=== PATIENT | female | born 1945 | race Caucasian/White ===

== ENCOUNTER → 2018-08-30 13:01 | Outpatient (CLI) | payer MEDICARE, SELFPAY ==
--- NOTE | 2018-08-30 | DI.RAD.S_ITS ---
PROCEDURE: XR CERVICAL SPINE 4V OR 5V INDICATIONS: CERVICALGIA TECHNIQUE: 5 views of the cervical spine acquired. COMPARISON: None. FINDINGS: Bones: No fractures or dislocations to the C7 level. Diffuse facet arthropathy is present. Trace anterolisthesis of C3 and C4. Endplate spurring and sclerosis. Mild narrowing of the C4-C5, C5-C6 and C6-C7 disc spaces. Chronic corticated ossicles projecting in the posterior paraspinal soft tissues at the level of C6 On the left there is moderate bony foraminal stenosis at the C3-C4 level. On the right there is mild bony narrowing of the C4-C5 and C5-C6 neuroforamen Soft tissues: No prevertebral soft tissue swelling. IMPRESSION: Multilevel cervical disc degeneration and facet arthropathy as above, most pronounced from C4-C7. Trace anterolisthesis of C3 on C4. Dictated by: Allen Kinsey M.D. on 08/30/2018 at 13:56 Approved by: Allen Kinsey M.D. on 08/30/2018 at 13:59
== END ==
PROVIDERS: PCP Physician Assistant; Visit Provider Physician Assistant
DX: M50.321 Other cervical disc degeneration at C4-C5 level (principal); M47.812 Spondylosis without myelopathy or radiculopathy, cervical region
CPT/HCPCS: 72050

== ENCOUNTER → 2020-11-15 15:49 | Outpatient (CLI) | payer OTHER, MEDICARE, SELFPAY ==
[2020-11-15 16:46] LABS: Appearance Urine UA CLEAR; Bilirubin Urine UA NEGATIVE (NEGATIVE); Color Urine UA YELLOW; Glucose Urine UA NEGATIVE (Negative); Ketones Urine UA NEGATIVE (NEGATIVE); Leukocyte Esterase Urine UA NEGATIVE (NEGATIVE); Nitrite Urine UA NEGATIVE (Negative); Occult Blood Urine UA 3+ (Negative); Protein Urine UA NEGATIVE (Negative); Urobilinogen Urine UA 0.2 E.U./dL (0.2)
[2020-11-15 16:47] LABS: Bacteria Urine None Seen
[2020-11-15 16:48] LABS: Culture Indicated Urine Cult Not Indicated; RBC Urine 5-10/HPF (0-5/HPF); Squamous Epithelial Cell Urine 0-1 /HPF (0-5/HPF); WBC Urine 0-1/HPF (0-5/HPF)
== END ==
PROVIDERS: PCP Internal Medicine; Referring Provider Specialist; Visit Provider Specialist
DX: N39.0 Urinary tract infection, site not specified (principal)
CPT/HCPCS: 81003; 81015

== ENCOUNTER → 2021-05-16 11:26 | Outpatient (CLI) | payer OTHER, MEDICARE, SELFPAY | PROVIDERS: PCP Internal Medicine; Referring Provider Internal Medicine; Visit Provider Internal Medicine | DX: Z78.0 Asymptomatic menopausal state (principal); M85.88 Other specified disorders of bone density and structure, other site; M85.852 Other specified disorders of bone density and structure, left thigh; M85.851 Other specified disorders of bone density and structure, right thigh | CPT/HCPCS: 77080 ==

== ENCOUNTER 2023-04-19 18:21 | Emergency (ER) | payer OTHER, MEDICARE, SELFPAY ==
[2023-04-19 18:24] VITALS: BP 192/86; PULSE 82; RESP 14; TEMP 36.5; O2SAT 99; BMI 22.4
--- NOTE | 2023-04-19 19:01 | DI.CT.S_ITS ---
PROCEDURE: CT HEAD/BRAIN WO CON INDICATIONS: fall with L sided forehead laceration TECHNIQUE: Noncontrast 4.5 mm thick angled axial sections acquired from the foramen magnum to the vertex, with coronal and sagittal reformats. For radiation dose reduction, the following was used: automated exposure control, adjustment of mA and/or kV according to patient size. COMPARISON: None. FINDINGS: Image quality: Good CSF spaces: Basal cisterns are patent. Lateral ventricles are symmetric. Volume: Vascular calcifications. Periventricular white matter disease is commonly seen with chronic microangiopathy. Volume loss is present. These findings are [id number] Brain: No intracranial hemorrhage. Shah-white differentiation is grossly maintained. Craniofacial structures: Left frontal scalp hematoma and laceration. paranasal sinus disease. IMPRESSION: No acute intracranial abnormality. Left frontal scalp hematoma and laceration. Dictated by: Nomi Haji M.D. on 04/19/2023 at 19:49 Approved by: Nomi Haji M.D. on 04/19/2023 at 19:50
--- NOTE | 2023-04-19 19:01 | ED_ITS ---
HPI - Head Injury General Chief complaint: Head Injury Stated complaint: Head inj, No thinners Time Seen by Provider: 04/19/23 18:53 Source: patient Mode of arrival: Wheelchair Limitations: no limitations History of Present Illness HPI Narrative: Patient is a 77-year-old female who is here for evaluation of the head injury. She states that she was wearing sandals at home. She tripped over a rug. She fell forward. She has a laceration to her forehead. No other injuries from the event. There was no loss of consciousness. She is not on blood thinners. She arrived by private vehicle. Related Data Home Medications Medication Instructions Recorded Confirmed cholecalciferol (vitamin D3) 250 500 mcg PO DAILY 11/29/20 11/29/20 mcg (10,000 unit) capsule prevagen PO 11/29/20 11/29/20 Previous Rx's Medication Instructions Recorded phenytoin sodium extended 100 mg 100 mg PO TID #60 caps 06/19/18 capsule (Dilantin Extended) estradiol 0.01% (0.1 mg/gram) 1 g vaginal 2XW #42.5 grams 11/29/20 vaginal cream (Estrace) Allergies Allergy/AdvReac Type Severity Reaction Status Date / Time codeine [CODEINE] Allergy Mild ITCHING Verified 04/19/23 18:24 Penicillins [PENICILLINS] Allergy Mild ITCHING Verified 04/19/23 18:24 cortisone Allergy Verified 04/19/23 18:24 Review of Systems Constitutional Constitutional: Reports system reviewed and no additional complaints, except as documented ENT Ears, Nose, Mouth, and Throat: Reports system reviewed and no additional complaints, except as documented Musculoskeletal Musculoskeletal: Reports system reviewed and no additional complaints, except as documented Integumentary/Breasts Skin/Breast: Reports system reviewed and no additional complaints, except as documented Neurologic Neurologic: Reports system reviewed and no additional complaints, except as documented Hematologic/Lymphatic On Anticoagulants: No Patient History Medical History History of UTI Lower urinary tract symptoms (LUTS) Neurological disease Postmenopausal atrophic vaginitis Seizure disorder Surgical History History of abdominal hysterectomy History of bladder surgery History of bladder suspension procedure History of breast biopsy Family History Mother Cancer Sister Cancer Inflammatory bowel disease Social History marital status: occupational status: employed Smoking Status: Former smoker Tobacco: How many years used: 40 alcohol intake: current caffeine: Yes Smoking Status: Former smoker alcohol intake frequency: holidays/special occasions only Substance Use Type: does not use Exam Initial Vital Signs Initial Vital Signs: Vital Signs Temperature 97.7 F 04/19/23 18:24 Pulse Rate 82 04/19/23 18:24 Respiratory Rate 14 04/19/23 18:24 Blood Pressure 192/86 H 04/19/23 18:24 Pulse Oximetry 99 04/19/23 18:24 Oxygen Delivery Method Room Air 04/19/23 18:24 Const General: cooperative, comfortable and No ill appearing HENMT Head: No abrasion and laceration (Left forehead) Face and sinus: normal facial exam Mouth: oral mucosae normal Resp Effort & Inspection: normal respiratory effort Cardio Rate: regular rate Back/Spine/Pelvis Cervical Spine: No cervical spinal tenderness Skin Other: 4 cm laceration to the left forehead. Neuro General: patient alert, patient awake, patient oriented x3 and moves all extremities Extrem General: normal to inspection and capillary refill normal Procedures Laceration Repair Laceration 1: Site: face (Left forehead) Side (If applicable): left Size (cm): 4 Description: linear Depth: simple, single layer Local Anesthetic: lidocaine 1% and with epi Amount of anesthesia used (mL): 10 Pre-repair: wound explored, irrigated extensively and deep structures intact Skin layer closed with: nylon Skin layer suture size: 3-0 Number of sutures: 8 Technique: simple, interrupted Scores GCS Crapo coma scale eye opening: Spontaneous Crapo coma scale verbal response: Orientated Crapo coma scale motor response: Obey commands Crapo coma scale total score: 15 Nexus Score for C-Spine Focal Neurologic deficit present: No Midline spinal tenderness present: No Altered level of conciousness present: No Intoxication present: No Distracting Injury Present: No Nexus Criteria for C-spine: 0 Course Orders Ordered: ED Orders 04/19/23 19:01 CT head/brain wo con Stat Discontinued Medications Bacitracin (Bacitracin Oint 0.9 Gm Pckt) 1 applic TOP NOW ONE Stop: 04/19/23 20:20 Last Admin: 04/19/23 21:01 Dose: 1 applic Documented By: MALVIN Vital Signs Vital signs: Vital Signs - 8 hr 04/19/23 18:24 04/19/23 19:31 04/19/23 20:00 Temperature 97.7 F Pulse Rate 82 Respiratory Rate 14 Blood Pressure 192/86 H 154/82 H 158/74 H Pulse Oximetry 99 Oxygen Delivery Method Room Air 04/19/23 21:03 Temperature Pulse Rate Respiratory Rate Blood Pressure 157/67 H Pulse Oximetry Oxygen Delivery Method [facility] - Head Injury Imaging Data CT scan - head: Radiologist's Impression: PROCEDURE:? CT HEAD/BRAIN WO CON ? INDICATIONS:? fall with L sided forehead laceration ? TECHNIQUE:? Noncontrast 4.5 mm thick angled axial sections acquired from the foramen magnum to the vertex, with coronal and sagittal reformats.? For radiation dose reduction, the following was used:? automated exposure control, adjustment of mA and/or kV according to patient size.? ? COMPARISON:? None. ? FINDINGS:? Image quality:? Good ? CSF spaces: Basal cisterns are patent. Lateral ventricles are symmetric. Volume:? Vascular calcifications. Periventricular white matter disease is commonly seen with chronic microangiopathy. Volume loss is present. These findings are cqqi-ph-[id number] ? ? Brain: No intracranial hemorrhage. Shah-white differentiation is grossly maintained. ? Craniofacial structures:? Left frontal scalp hematoma and laceration.? paranasal sinus disease. ? IMPRESSION:? No acute intracranial abnormality.? Left frontal scalp hematoma and laceration. [facility] Narrative Medical decision making narrative: This was clearly a mechanical fall. Her cervical spine was cleared by nexus criteria. Head CT is unremarkable. Her forehead laceration was closed as described above and she was given care instructions and return precautions and follow-up instructions. She reports no other injuries from the event. No other injuries found on the exam. Discharge patient home. She expressed understanding and agreement. Discharge Plan Departure Patient Disposition: Home Clinical Impression: Forehead laceration Instructions: DI for Laceration Repair Activity Restrictions/Additional Instructions: The stitches do need to be removed in 7-10 days. You can either go to the walk- in clinic or your primary doctor for this. Until then you can cover the area with topical antibiotic ointment. You can shower like normal. Return to the emergency department for new or worsening symptoms. Prescriptions: No Action phenytoin sodium extended [Dilantin Extended] 100 mg capsule 100 mg PO TID Qty: 60 0RF Rx Instructions: Patient needs to establish with a PCP prior to future fills. 06/19/18 prevagen PO cholecalciferol (vitamin D3) 250 mcg (10,000 unit) capsule 500 mcg PO DAILY estradiol [Estrace] 0.01 % (0.1 mg/gram) cream 1 g vaginal 2XW Qty: 42.5 3RF Rx Instructions: Insert 1 g intravaginally at bedtime x times 12 days then 2 times per week at bedtime thereafter as directed. Stand Alone Forms: Patient Portal/API
[2023-04-19 19:31] VITALS: BP 154/82
[2023-04-19 20:00] VITALS: BP 158/74
[2023-04-19] MEDS: BACITRACIN OINT 0.9 GM PCKT 1 APPLIC TOP (21:01)
[2023-04-19 21:03] VITALS: BP 157/67
== END 2023-04-19 21:09 | disposition home or self-care (01) ==
PROVIDERS: Emergency Provider Emergency Medicine
DX: S01.81XA Laceration without foreign body of other part of head, initial encounter (principal); W01.0XXA Fall on same level from slipping, tripping and stumbling without subsequent striking against object, initial encounter
CPT/HCPCS: 12013; 70450; 99283

== ENCOUNTER 2023-11-26 16:43 | Day surgery (SDC) | payer OTHER, MEDICARE, SELFPAY ==
--- NOTE | 2023-11-26 | PATH_ITS ---
[facility] Accession Number: [id number] No. of containers..05 Tissue . 01 Material submitted: . PART A: colon - APPENDICEAL ORIFICE POLYP PART B: colon - ASCENDING POLYP PART C: sigmoid colon - SIGMOID POLYP PART D: rectosigmoid junction - RECTO-SIGMOID POLYP PART E: rectum - RECTAL BIOPSY . 01 Diagnosis: A. APPENDICEAL ORIFICE POLYP: Sessile serrated adenoma. . B. ASCENDING COLON POLYP: Sessile serrated adenoma. . C. SIGMOID COLON POLYP: Tubular adenoma. . D. 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 Negative for malignancy. . E. RECTUM, BIOPSY: Colorectal mucosa with erosion; please see comment. Negative for granulomas, dysplasia or malignancy. [facility] 12/03/2023 1151 Local . 01 Comment: Part D: The rectosigmoid colon polyp is a traditional serrated adenoma with focal high-grade dysplasia evidenced by a cribriform architecture and loss of nuclear polarity. No malignancy is identified. Given the presence of high-grade dysplasia, correlation with endoscopic findings before and after polypectomy to assurance complete removal of the lesion, and close clinical followup are recommended. . As part of routine clinical quality rn, Dr. Padron has reviewed part D of this case and agrees with the presence of high-grade dysplasia with no evidence of malignancy. . Part E: The findings in the rectal biopsy raise a differential diagnosis including infection, drug/toxin-induced injury, solitary rectal (stercoral) ulcer, and in the appropriate clinical setting, idiopathic inflammatory bowel disease. . 01 Electronically signed: . Agustin Larsen MD, PhD, Pathologist NPI- [id number] . 01 Gross description: . Part A: APPENDICEAL ORIFICE POLYP: Received in formalin are 2 fragment(s) of whitting[place], soft tissue measuring 0.3 x 0.2 x 0.2 cm to 0.7 x 0.4 x 0.4 cm submitted entirely in 1 cassette(s) Part B: ASCENDING POLYP: Received in formalin are multiple fragment(s) of whittington, soft tissue measuring 0.1 x 0.1 x 0.1 cm to 0.6 x 0.4 x 0.3 cm submitted entirely in 2 cassette(s) Part C: SIGMOID POLYP: Received in formalin is 1 fragment(s) of whittington, soft tissue measuring 0.5 x 0.4 x 0.3 cm submitted entirely in 1 cassette(s) Part D: RECTO-SIGMOID POLYP: Received in formalin is 1 fragment of whittington soft tissue measuring 1.0 x 1.0 x 1.0 cm. Specimen is sectioned and submitted in its entirety in 1 cassette. Part E: RECTAL BIOPSY: Received in formalin is 1 fragment(s) of whittington, soft tissue measuring 0.2 x 0.1 x 0.1 cm submitted entirely in 1 cassette(s) /DIOGO 11/27/2023 [facility] . 01 Pathologist provided ICD-10: D12.6, D12.7, K52.9 . 01 CPT . 564484, 308633, 675491, [id number], [id number] Specimen Comment: A courtesy copy of this report has been sent to [phone] Performed at: 01 [facility] [address] [place] [address], [place], [place] [id number] MD Randy Barcenas MD Phone: [phone]
--- NOTE | 2023-11-26 17:00 | P.HP_ITS ---
History of Present Illness History of Present Illness Date Patient Seen: 11/26/23 Time Patient Seen: 17:01 Chief complaint: Colonoscopy Narrative: This is a 78-year-old female with a positive Cologuard. She has a tendency towards constipation. She has been having a little bit of rectal bleeding of late. [facility] Medical History Lower urinary tract symptoms (LUTS) History of UTI Postmenopausal atrophic vaginitis Seizure disorder Neurological disease Surgical History History of abdominal hysterectomy History of breast biopsy History of bladder suspension procedure History of bladder surgery Family History Mother Cancer Sister Cancer Inflammatory bowel disease Social History marital status: occupational status: employed Smoking Status: Former smoker Tobacco: How many years used: 40 alcohol intake: current caffeine: Yes Meds Home Medications and Allergies Home Medications Medication Instructions Recorded Confirmed Type phenytoin sodium extended 100 mg 100 mg PO TID #60 caps 06/19/18 11/26/23 Rx capsule (Dilantin Extended) cholecalciferol (vitamin D3) 250 500 mcg PO DAILY 11/29/20 11/29/20 History mcg (10,000 unit) capsule estradiol 0.01% (0.1 mg/gram) 1 g vaginal 2XW #42.5 grams 11/29/20 11/29/20 Rx vaginal cream (Estrace) prevagen PO 11/29/20 11/29/20 History Allergies Allergy/AdvReac Type Severity Reaction Status Date / Time codeine [CODEINE] Allergy Mild ITCHING Verified 11/26/23 16:59 Penicillins [PENICILLINS] Allergy Mild ITCHING Verified 11/26/23 16:59 cortisone Allergy Verified 11/26/23 16:59 Review of Systems Review of Systems ROS: Yes All systems reviewed with the patient and are negative except as otherwise documented Exam Const General: cooperative HENMT Head: normal to inspection Eyes General: appearance normal, both eyes and all related structures Neck Neck: normal visual inspection Chest Chest: normal inspection of the chest Resp Effort & Inspection: normal respiratory effort Cardio Rate: regular rate GI Inspection: normal to inspection Skin General: no rashes or lesions noted Neuro General: patient alert and patient awake Extrem General: normal to inspection and no pedal edema Psych Appearance: grossly normal Assessment & Plan Assessment & Plan narrative: 78-year-old female with a positive Cologuard. She has been having constipation and rectal bleeding. Colonoscopy is pursued today.
--- NOTE | 2023-11-26 17:02 | PM.PREOP ---
Pre-operative Note Interval Note History & Physical reviewed/Exam performed by Physician: Yes Changes to H&P: No ASA Class (for procedural sedation): II
[2023-11-26 17:04] VITALS: BP 156/77; PULSE 910; RESP 16; TEMP 36.7; O2SAT 96
[2023-11-26] MEDS: LACTATED RINGERS 1,000 ML 42 ML IV (17:05)
--- NOTE | 2023-11-26 18:00 | PM.OP.COLON ---
Operative Date/Time/Diagnoses Date of procedure: 11/26/23 Time of procedure: 18:00 Pre-op diagnosis: Positive Cologuard, intermittent rectal bleeding, constipation. Post-op diagnosis: same Procedure & Clinicians Study performed: Colonoscopy with saline injection, hot snare polypectomy, Endoclip deployment, and biopsies. Same procedure as scheduled: Yes Indications: Positive Cologuard, intermittent rectal bleeding, constipation. Surgeon: Tomi Vasquez Procedure Notes SCOAP/Timeout: Done Procedure in detail: After the risks and benefits were explained, written and verbal informed consent was obtained. The patient was brought into the procedure room and placed into the left lateral decubitus position. Please see anesthesia notes for sedation details. Digital rectal examination was accomplished. The scope was introduced into the patient and advanced under direct visualization to the cecum as identified by the appendiceal orifice and ileocecal valve. The scope was slowly withdrawn to carefully examine the mucosa for any defects or lesions. Comprehensive imaging was accomplished throughout the rectum including the dentate line. The colon was decompressed, the scope was then removed from the patient who tolerated the procedure well. Procedure time was prolonged secondary to numerous polyps and 1 complex polypectomy; 22 modifier is requested. Pediatric colonoscope Bowel prep adequate Scope withdrawal time: 41 minutes Sedation minutes: 51 Complications: none Impression: The patient had evidence of grade 2 to 3 internal hemorrhoids. No bleeding. There was a swath of friable erythematous mucosa at the rectosigmoid junction concerning for early stercoral ulceration. This was biopsied for histopathologic analysis. This focal abnormality was perhaps 3 x 5 cm of involved mucosa. The remainder of the rectal mucosa appeared normal with the exception of some scattered hyperplastic appearing diminutive polyps. In the cecum there was a 5 mm polyp in the appendiceal orifice removed with cold snare. A 2nd polyp measuring perhaps 7 mm and sessile in the cecum was removed by hot snare. Both of these were submitted for histopathologic analysis together. In the ascending colon there was a sessile polyp that measured perhaps 12 x 22 mm in greatest dimension. We injected saline for an adequate submucosal lift and then this polyp was removed by way of piecemeal hot snare polypectomy. To close the defect, we used 3 Endoclips. In the proximal sigmoid colon there was an approximately 6 mm sessile polyp removed with hot snare. Just proximal to the rectosigmoid junction was a semi pedunculated polyp measuring up to 15 mm in greatest dimension removed by way of hot snare. Some diverticulosis was noted in the sigmoid region. Endoscopic diagnosis 1. Multiple colon polyps 2. Diverticulosis 3. Hemorrhoids 4. Early stercoral ulceration Post-procedure Plan for aftercare: 1. Await histology 2. An niwt-ixb-lozavny fiber supplement such as Metamucil or Citrucel should be used twice daily to facilitate soft regular stools. 3. Should there be no adequate colonic evacuation after 48-72 hours, consider an cvyl-uek-vuhceag dose of MiraLax. 4. Avoid aspirin and NSAIDs times 10 days. 5. Repeat colonoscopy will likely be suggested for 6 months for surveillance. Disposition: PACU
[2023-11-26 18:02] VITALS: BP 124/77; PULSE 90; RESP 14; TEMP 36.2; O2SAT 97
[2023-11-26 18:07] VITALS: BP 151/90; PULSE 94; RESP 15; O2SAT 97
[2023-11-26 18:12] VITALS: BP 161/89; PULSE 95; RESP 18; O2SAT 97
[2023-11-26 18:17] VITALS: BP 155/87; PULSE 82; RESP 18; TEMP 36.2; O2SAT 97
== END 2023-11-26 18:26 | disposition home or self-care (01) ==
PROVIDERS: Referring Provider Surgery; Visit Provider Internal Medicine Gastroenterology
PROC: 0DJD8ZZ Inspection of Lower Intestinal Tract, Via Natural or Artificial Opening Endoscopic (ICD-10-PCS; CPT 45378; principal; 2023-11-26 17:15)
DX: K62.5 Hemorrhage of anus and rectum (principal); R19.5 Other fecal abnormalities; K59.00 Constipation, unspecified; K57.30 Diverticulosis of large intestine without perforation or abscess without bleeding; D12.1 Benign neoplasm of appendix; D12.2 Benign neoplasm of ascending colon; D12.5 Benign neoplasm of sigmoid colon; D12.7 Benign neoplasm of rectosigmoid junction; K62.6 Ulcer of anus and rectum
CPT/HCPCS: 45381; 45385; J2704

== ENCOUNTER 2024-01-30 15:03 | Emergency (ER) | payer OTHER, MEDICARE, SELFPAY ==
[2024-01-30] VITALS (8 sets, daily range): BP systolic 153–192; BP diastolic 70–126; PULSE 62–84; RESP 16; TEMP 37.1; O2SAT 94–100; BMI 26.2
[2024-01-30 17:12] LABS: Appearance Urine UA CLEAR; Bilirubin Urine UA NEGATIVE (NEGATIVE); Color Urine UA YELLOW; Glucose Urine UA NEGATIVE (Negative); Ketones Urine UA NEGATIVE (NEGATIVE); Leukocyte Esterase Urine UA TRACE (NEGATIVE); Nitrite Urine UA POSITIVE (Negative); Occult Blood Urine UA TRACE-INTACT (Negative); Protein Urine UA NEGATIVE (Negative); Urobilinogen Urine UA 0.2 E.U./dL (0.2)
[2024-01-30 17:15] LABS: pH Urine UA 7.5 (4.5-8.0)
[2024-01-30 17:32] LABS: Urine Volume 10mL (spun)
[2024-01-30 17:33] LABS: Bacteria Urine Many (>30); Culture Indicated Urine Specimen Cultured; RBC Urine 0-1/HPF (0-5/HPF); Renal Epithelial Cells Urine 0-1/HPF (0-1/HPF); Squamous Epithelial Cell Urine 0-1 /HPF (0-5/HPF); WBC Urine 10-30/HPF (0-5/HPF)
--- NOTE | 2024-01-30 20:22 | ED.GENADULT ---
HPI - General Adult General Chief complaint: Urogenital-Female Stated complaint: sent by Carlos Eduardo of[facility], UTI Time Seen by Provider: 01/30/24 20:22 Source: patient Mode of arrival: Ambulatory History of Present Illness HPI narrative: 78-year-old woman with a history of a single seizure currently on phenytoin uses topical estrogen has had 6 days of dysuria, frequency in overall irritation. He is now having some lower pubic pain and when questioned in detail maybe having some developing right flank pain. There was no nausea, vomiting, fever, dyspnea, body aches, chest pain, sense of systemic symptoms or complaints. She talked to her doctor who told her to come to the emergency department for additional evaluation. Related Data Home Medications Medication Instructions Recorded Confirmed cholecalciferol (vitamin D3) 250 500 mcg PO DAILY 11/29/20 11/29/20 mcg (10,000 unit) capsule prevagen PO 11/29/20 11/29/20 Previous Rx's Medication Instructions Recorded phenytoin sodium extended 100 mg 100 mg PO TID #60 caps 06/19/18 capsule (Dilantin Extended) estradiol 0.01% (0.1 mg/gram) 1 g vaginal 2XW #42.5 grams 11/29/20 vaginal cream (Estrace) sulfamethoxazole 800 1 tab PO BID #14 tabs 01/30/24 mg-trimethoprim 160 mg tablet (Bactrim DS) Allergies Allergy/AdvReac Type Severity Reaction Status Date / Time codeine [CODEINE] Allergy Mild ITCHING Verified 11/26/23 16:59 Penicillins [PENICILLINS] Allergy Mild ITCHING Verified 11/26/23 16:59 cortisone Allergy Verified 11/26/23 16:59 Review of Systems Review of Systems Narrative: Pertinent positive and negative findings as per HPI Patient History Medical History Lower urinary tract symptoms (LUTS) History of UTI Postmenopausal atrophic vaginitis Seizure disorder Neurological disease Surgical History History of abdominal hysterectomy History of breast biopsy History of bladder suspension procedure History of bladder surgery Family History Mother Cancer Sister Cancer Inflammatory bowel disease Social History marital status: occupational status: employed Smoking Status: Former smoker Tobacco: How many years used: 40 alcohol intake: current caffeine: Yes Smoking Status: Former smoker alcohol intake frequency: holidays/special occasions only Substance Use Type: does not use Exam Initial Vital Signs Initial Vital Signs: Vital Signs Temperature 98.7 F 01/30/24 16:06 Pulse Rate 80 01/30/24 16:06 Respiratory Rate 16 01/30/24 16:06 Blood Pressure 153/76 H 01/30/24 16:06 Pulse Oximetry 98 01/30/24 16:06 Oxygen Delivery Method Room Air 01/30/24 16:06 General: Healthy appearing, in no acute distress. Able to give a complete and coherent history. Well-nourished well-developed HEENT: Moist mucous membranes, normal sclera with reactive pupils, Respiratory: Lungs are clear to auscultation, no wheezing no rales no rhonchi. Full and symmetrical air movement Cardiac: Regular rate and rhythm no murmurs no bruits Abdomen: Soft, mild suprapubic tenderness without rebound or guarding,, good bowel tones, mild right flank pain with deep palpation Skin: Warm and dry, no rashes Neurologic: Grossly neurologically intact with no obvious asymmetries or abnormalities Extremities: No trauma, well perfused Psych: Cooperative, appropriate insight and affect Course Orders Ordered: ED Orders 01/30/24 16:23 Urinalysis and Microscopic Stat Urine Culture Stat Discontinued Medications Trimethoprim/Sulfamethoxazole (Trimeth/Sulfa 160/800 (Ds) Tablet) 1 tab PO NOW ONE Stop: 01/30/24 20:50 Vital Signs Vital signs: Vital Signs - 8 hr 01/30/24 16:06 Temperature 98.7 F Pulse Rate 80 Respiratory Rate 16 Blood Pressure 153/76 H Pulse Oximetry 98 Oxygen Delivery Method Room Air Medical Decision Making Lab Data Labs: Lab Results 01/30/24 Range/Units 16:23 Urine Color Yellow Urine Appearance Clear Urine pH 7.5 (4.5-8.0) Ur Specific [place] 1.020 (1.000-1.035) Urine Protein Negative (Negative) Urine Glucose (UA) Negative (Negative) g/dL Urine Ketones Negative (NEGATIVE) Urine Occult Blood Trace-intact (Negative) Urine Nitrate Positive H (Negative) Urine Bilirubin Negative (NEGATIVE) Urine Urobilinogen 0.2 (0.2) E.U./dL Ur Leukocyte Esterase Trace H (NEGATIVE) Urine RBC 0-1/hpf (0-5/HPF) Urine WBC 10-30/hpf H (0-5/HPF) Ur Squamous Epith Cells 0-1 /hpf (0-5/HPF) Ur Renal Epithelial Cell 0-1/hpf (0-1/HPF) Urine Bacteria Many (>30) H (None) Ur Culture Indicated? Specimen cultured Vol Urine Centrifuged 10ml (spun) Urine Dip Bedside Urine Glucose Negative Bedside Urine Bilirubin - Negative Bedside Urine Ketone - Negative Urine Specific [place] 1.015 Bedside Urine Occult Blood ++ Bedside Urine pH 7.0 Bedside Urine Protein - Negative Bedside Urine Urobilinogen - Negative Bedside Urine Nitrite + Positive Bedside Urine Leukocytes +/- 15 Esterase Point of care testing: Urine Dip Bedside Urine Glucose Negative Bedside Urine Bilirubin - Negative Bedside Urine Ketone - Negative Urine Specific [place] 1.015 Bedside Urine Occult Blood ++ Bedside Urine pH 7.0 Bedside Urine Protein - Negative Bedside Urine Urobilinogen - Negative Bedside Urine Nitrite + Positive Bedside Urine Leukocytes +/- 15 Esterase MDM Narrative Medical decision making narrative: CC: 6 days of dysuria Complicating co-morbidities: Atrophic vaginitis, single seizure continued phenytoin dosing Data collected from: patient Differential considered: Simple UTI, pyelonephritis, sepsis, colitis, low risk for sexually transmitted infection Exam documented above, pertinent findings include: Patient appears remarkably well. Minor suprapubic tenderness with deep palpation minor right flank pain. Vitals are entirely unremarkable Lab Test results independently reviewed as above. Pertinent findings: Urinalysis is positive for urinary tract infection Treatments: She was started on Bactrim Discussion: Remarkably healthy 78-year-old woman with 6 days of urinary tract symptoms and urinalysis suggesting UTI. No evidence of sepsis on physical exam no evidence of significant pyelonephritis, she has not febrile, not nauseated, able to eat and drink without complication has reliable transport to return back to the emergency department if symptoms worsen. With shared decision-making we opted to not proceed with any additional workup as she has no clinical signs or symptoms of additional systemic disease. Will opt to treat her with a longer course of Bactrim, 7 days, given the fact that she has had symptoms for the last 6 days. She clearly recognizes that she needs to return to the emergency department if symptoms are not improving. Questions are answered and she is safe for discharge Discharge Plan Departure Patient Disposition: Home Clinical Impression: Urinary tract infection Qualifiers: Urinary tract infection type: acute cystitis Hematuria presence: without hematuria Qualified Code(s): N30.00 - Acute cystitis without hematuria Instructions: DI for Urinary Tract Infection (UTI) Activity Restrictions/Additional Instructions: Thank you for coming in today It does look like you have a bladder infection but your clinical exam and vital signs do not suggest more severe infection. I do not think that you have sepsis I do not think that you have active pyelonephritis but you are at risk. Because of that I am going to suggest 7 full days of Bactrim, an antibiotic, to be taken twice a day. 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 Please make sure that you are drinking plenty of fluids. Do continue to use the topical estrogen creams If you find that you are getting worse or develop any new symptoms, please feel free to return to the emergency department for further evaluation. Prescriptions: New sulfamethoxazole-trimethoprim [Bactrim DS] 800-160 mg tablet 1 tab PO BID Qty: 14 0RF No Action phenytoin sodium extended [Dilantin Extended] 100 mg capsule 100 mg PO TID Qty: 60 0RF Rx Instructions: Patient needs to establish with a PCP prior to future fills. 06/19/18 prevagen PO cholecalciferol (vitamin D3) 250 mcg (10,000 unit) capsule 500 mcg PO DAILY estradiol [Estrace] 0.01 % (0.1 mg/gram) cream 1 g vaginal 2XW Qty: 42.5 3RF Rx Instructions: Insert 1 g intravaginally at bedtime x times 12 days then 2 times per week at bedtime thereafter as directed. Referrals: Shira Nelson MD [Primary Care Provider] - Stand Alone Forms: Patient Portal/API
[2024-01-30] MEDS: TRIMETH/SULFA 160/800 (DS) TABLET 1 TAB PO (21:10)
== END 2024-01-30 21:08 | disposition home or self-care (01) ==
PROVIDERS: Emergency Medicine; Emergency Provider Emergency Medicine; PCP Internal Medicine
DX: N30.00 Acute cystitis without hematuria (principal)
CPT/HCPCS: 81001; 81003; 87077; 87086; 87186; 99283

== ENCOUNTER 2024-07-21 10:15 | Inpatient (IN) | payer OTHER, MEDICARE, SELFPAY ==
[2024-07-21] VITALS (27 sets, daily range): BP systolic 105–153; BP diastolic 56–83; PULSE 86–117; RESP 16–37; TEMP 36–37.3; O2SAT 88–99; BMI 25.4
--- NOTE | 2024-07-21 10:35 | DI.RAD.S_ITS ---
PROCEDURE: XR CHEST 1V INDICATIONS: Shortness of breath TECHNIQUE: One view of the chest was acquired. COMPARISON: None. FINDINGS: Surgical changes and devices: None. Lungs and pleura: Right midlung opacity. No pleural effusions or pneumothorax. Mediastinum: Mediastinal contours appear normal. Heart size is normal. Bones and chest wall: No suspicious bony lesions. Overlying soft tissues appear unremarkable. IMPRESSION: Right midlung opacity concerning for pneumonia. Recommend follow-up radiograph after treatment to ensure resolution and exclude underlying neoplasm. Dictated by: Jared Aguilera M.D. on 07/21/2024 at 11:25 Approved by: Jared Aguilera M.D. on 07/21/2024 at 11:25
--- NOTE | 2024-07-21 10:37 | EKG_ITS ---
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
[2024-07-21 10:56] LABS: Add Manual Diff / Slide Review NO; Basophils Absolute Auto 100 /uL (0-100); Basophils Percent Auto 0.4 % (0-2); Eosinophils Absolute Auto 100 /uL (0-450); Eosinophils Percent Auto 0.3 % (2-4); Hematocrit 41.3 % (36-46); Hemoglobin 13.5 g/dL (12.0-16.0); Lymphocytes Absolute Auto 1000 /uL (1100-4500); Lymphocytes Percent Auto 3.9 % (25-40); Mean Corpuscular HGB Conc 32.6 % (30-36); Mean Corpuscular Hemoglobin 30.3 PG (26-34); Monocytes Absolute Auto 1600 /uL (0-900); Monocytes Percent Auto 6.4 % (3-14); Neutrophils Absolute Auto 22500 /uL (1500-7000); Platelet Count 343 X10^3/uL (150-400); Red Blood Cell Count 4.45 X10^6/uL (4.0-5.2); Red Cell Distribution Width 13.9 % (11.6-14.8); White Blood Cell Count 25.3 X10^3/uL (4.5-11.0)
[2024-07-21 10:59] LABS: INR 1.4 (0.9-1.3); Prothrombin Time 15.4 SECONDS (9.4-12.5)
--- NOTE | 2024-07-21 11:00 | ED.URI ---
HPI - URI/Sore Throat General Chief Complaint: Upper Respiratory Symptoms Stated Complaint: cough, No energy, thick green phlegm Time Seen by Provider: 07/21/24 10:54 Source: patient Mode of arrival: Ambulatory History of Present Illness HPI Narrative: Patient is a 78-year-old female history of seizure on Dilantin but has not had seizure in many years hyperlipidemia presenting today with a cough increasing weakness and shortness of breath. She says it has been ongoing for about 1 month. She is unable to go up stairs to take a shower because she was so weak and short of breath. She has just been doing rubbing alcohol baths. She has a significant decrease in appetite not drinking as much but still urinating. She feels extremely short of breath no significant swelling in her legs no chest pain. She also reports coughing up green productive sputum she was able to give us a sample. Related Data Home Medications Medication Instructions Recorded Confirmed phenytoin sodium extended 100 mg 100 mg PO TID 07/21/24 07/21/24 capsule (Dilantin Extended) rosuvastatin 5 mg PO DAILY 07/21/24 07/21/24 Allergies Allergy/AdvReac Type Severity Reaction Status Date / Time codeine [CODEINE] Allergy Mild ITCHING Verified 11/26/23 16:59 Penicillins [PENICILLINS] Allergy Mild ITCHING Verified 11/26/23 16:59 cortisone Allergy Verified 11/26/23 16:59 Patient History Medical History Lower urinary tract symptoms (LUTS) History of UTI Postmenopausal atrophic vaginitis Seizure disorder Neurological disease Surgical History History of abdominal hysterectomy History of breast biopsy History of bladder suspension procedure History of bladder surgery Family History Mother Cancer Sister Cancer Inflammatory bowel disease Social History marital status: household members: spouse occupational status: employed Smoking Status: Former smoker Tobacco: How many years used: 40 alcohol intake: former caffeine: Yes Smoking Status: Never smoker alcohol intake frequency: holidays/special occasions only Substance Use Type: does not use Exam Initial Vital Signs Initial Vital Signs: Vital Signs Temperature 96.8 F L 07/21/24 10:30 Pulse Rate 114 H 07/21/24 10:30 Respiratory Rate 24 07/21/24 10:30 Blood Pressure 135/73 07/21/24 10:30 Pulse Oximetry 88 L 07/21/24 10:30 Oxygen Delivery Method Room Air 07/21/24 10:30 GENERAL: Alert 78 appears comfortable nontoxic HEENT: Head atraumatic,EOMI, pupils reactive, face symmetric, moist mucous membranes CARDIOVASCULAR: Regular rate and rhythm without murmurs, rubs or gallops. RESPIRATORY: Decreased breath sounds bilaterally no significant wheezing rales or rhonchi ABDOMEN: Soft, nontender. Normoactive bowel sounds all 4 quadrants. No guarding or rebound. EXTREMITIES: Normal range of motion, no clubbing or edema. Neurovascularly intact NEUROLOGICAL: Alert and oriented x4.Normal gait and speech. Cranial nerves II through XII grossly intact. SKIN: Warm, dry, no laceration, no petechiae, no rashes or lesions. Course Orders Ordered: ED Orders 07/21/24 12:40 Troponin & CK Cardiac Panel Stat 07/21/24 13:00 Sputum Culture Stat Acetaminophen (Acetaminophen 325 Mg Tablet) 650 mg PO Q6H PRN PRN Reason: Fever/Mild Pain (1-3) Calcium Carbonate (Calcium Carbonate 500 Mg Tab) 1,000 mg PO Q4HR PRN PRN Reason: Dyspepsia Enoxaparin Sodium (Enoxaparin 40 Mg/0.4 Ml Syringe) 40 mg SUBCUT DAILY [facility] Ceftriaxone Sodium 1,000 mg/ (Sodium Chloride) 100 mls @ 200 mls/hr IV Q24H [facility] Stop: 07/27/24 10:59 Azithromycin 500 mg/ Dextrose 250 mls @ 250 mls/hr IV Q24H [facility] Stop: 07/25/24 11:59 Naloxone HCl (Naloxone 0.4 Mg/Ml Vial) 0.2 mg IV Q2MIN PRN PRN Reason: Opiate Reversal Ondansetron HCl (Ondansetron 4 Mg Odt) 4 mg PO Q8HR PRN PRN Reason: Nausea And Vomiting Sennosides (Sennosides 8.6 Mg Tablet) 17.2 mg PO BEDTIME CECILY Sodium Chloride (Sodium Chloride 0.9% Flush) 10 ml IV PRN PRN PRN Reason: Flush Sodium Chloride (Sodium Chloride 0.9% Flush) 10 ml IV BID CECILY Discontinued Medications Albuterol/Ipratropium (Albuterol/Ipratropium 3 Ml Ampul) 3 ml INH NOW ONE Stop: 07/21/24 11:13 Last Admin: 07/21/24 11:30 Dose: 3 ml Documented By: IMANI Aspirin (Aspirin 81 Mg Chew Tab) 324 mg PO NOW ONE Stop: 07/21/24 11:24 Last Admin: 07/21/24 11:40 Dose: 324 mg Documented By: ASHWINI Ceftriaxone Sodium 1,000 mg/ (Sodium Chloride) 100 mls @ 200 mls/hr IV NOW ONE Stop: 07/21/24 11:13 Last Infusion: 07/21/24 12:12 Dose: Infused Documented By: Admin: 07/21/24 11:41 Dose: 200 mls/hr Documented By: ASHWINI Azithromycin 500 mg/ Dextrose 250 mls @ 250 mls/hr IV NOW ONE Stop: 07/21/24 11:13 Last Infusion: 07/21/24 13:44 Dose: Infused Documented By: Admin: 07/21/24 12:08 Dose: 250 mls/hr Documented By: ASHWINI Sodium Chloride (Normal Saline 0.9%) 1,000 mls @ 1,000 mls/hr IV BOLUS ONE Stop: 07/21/24 12:11 Last Infusion: 07/21/24 12:42 Dose: Infused Documented By: Admin: 07/21/24 11:36 Dose: 1,000 mls/hr Documented By: ASHWINI Vital Signs Vital signs: Vital Signs - 8 hr 07/21/24 13:15 07/21/24 13:15 07/21/24 13:30 Pulse Rate 96 H 94 H Respiratory Rate 18 24 Blood Pressure 116/57 L Pulse Oximetry 99 97 Oxygen Delivery Method Oxygen Flow Rate 07/21/24 13:31 07/21/24 13:31 07/21/24 13:45 Pulse Rate 93 H 97 H Respiratory Rate 16 18 Blood Pressure 105/57 L Pulse Oximetry 98 92 Oxygen Delivery Method Nasal Cannula Oxygen Flow Rate 2 07/21/24 13:45 07/21/24 14:00 07/21/24 14:00 Pulse Rate 114 H Respiratory Rate 37 H Blood Pressure 112/59 L 110/56 L Pulse Oximetry 91 Oxygen Delivery Method Room Air Oxygen Flow Rate 07/21/24 14:15 07/21/24 14:15 07/21/24 14:30 Pulse Rate 94 H Respiratory Rate 28 H Blood Pressure 117/57 L 106/58 L Pulse Oximetry 92 Oxygen Delivery Method Oxygen Flow Rate 07/21/24 14:30 07/21/24 14:45 07/21/24 14:45 Pulse Rate 92 H 91 H Respiratory Rate 20 16 Blood Pressure 107/58 L Pulse Oximetry 90 L 92 Oxygen Delivery Method Room Air Oxygen Flow Rate 07/21/24 14:46 07/21/24 14:46 07/21/24 15:00 Pulse Rate 89 Respiratory Rate 20 Blood Pressure Pulse Oximetry 88 L 91 97 Oxygen Delivery Method Room Air Nasal Cannula Oxygen Flow Rate 2 2 07/21/24 15:00 Pulse Rate Respiratory Rate Blood Pressure 107/56 L Pulse Oximetry Oxygen Delivery Method Oxygen Flow Rate MDM - URI/Sore Throat Lab Data 07/21/24 10:40 07/21/24 10:40 Labs: Lab Results 07/21/24 07/21/24 07/21/24 Range/Units 10:40 11:14 12:40 WBC 25.3 H (4.5-11.0) X10^3/uL RBC 4.45 (4.0-5.2) X10^6/uL Hgb 13.5 (12.0-16.0) g/dL Hct 41.3 (36-46) % MCV 93.0 (80-100) fL MCH 30.3 (26-34) PG MCHC 32.6 (30-36) % RDW 13.9 (11.6-14.8) % Plt Count 343 (150-400) X10^3/uL Neut % (Auto) 89.0 H (50-75) % Lymph % (Auto) 3.9 L (25-40) % [place] % (Auto) 6.4 (3-14) % Eos % (Auto) 0.3 L (2-4) % Baso % (Auto) 0.4 (0-2) % Neut # (Auto) 08605 H (8059-8156) /uL Lymph # (Auto) 1000 L (4183-1371) /uL [place] # (Auto) 1600 H (0-900) /uL Eos # (Auto) 100 (0-450) /uL Baso # (Auto) 100 (0-100) /uL PT 15.4 H (9.4-12.5) SECONDS INR 1.4 H (0.9-1.3) D-Dimer 6355 H (<500) ng/ml Sodium 134 L (137-145) mmol/L Potassium 3.9 (3.4-5.1) mmol/L Chloride 97 L (98-107) mmol/L Carbon Dioxide 26 (22-32) mmol/L BUN 39 H (7-17) mg/dL Creatinine 1.27 H (0.52-1.04) mg/dL Estimated GFR 43 L (>60) mL/min BUN/Creatinine Ratio 30.7 H (6-22) Glucose 176 H (80-110) mg/dL Lactate 1.9 (0.7-2.1) mmol/L Calcium 9.3 (8.4-10.2) mg/dL Total Bilirubin 0.6 (0.2-1.3) mg/dL AST 55 H (14-36) IU/L ALT 32 (<35) IU/L Alkaline Phosphatase 147 H (38-126) U/L Total Creatine Kinase 37 (30-135) U/L Troponin I 0.184 H* 0.136 H* (0.01-0.034) ng/mL NT-Pro-B Natriuret Pep 1970 H (<450) pg/mL Total Protein 7.6 (6.3-8.2) g/dL Albumin 4.0 (3.5-5.0) g/dL Globulin 3.6 (1.7-4.1) g/dL Albumin/Globulin Ratio 1.1 (1.0-2.8) Chlamy pneumoniae PCR Not detected (Not Detect) Adenovirus (PCR) Not detected (Not Detect) B. pertussis DNA (PCR) Not detected (Not Detect) B.parapertussis DNA PCR Not detected (Not Detecte) Coronavirus OC43 (PCR) Not detected (Not Detect) Coronavirus HKU1 (PCR) Not detected (Not Detect) Coronavirus 229E (PCR) Not detected (Not Detect) SARS-CoV-2 (PCR) Not detected (Not Detecte) Coronavirus NL63 (PCR) Not detected (Not Detect) Human Metapneumovir PCR Not detected (Not Detect) Influenza Type A (PCR) Not detected (Not Detect) Influenza Type B (PCR) Not detected (Not Detect) M. pneumoniae (PCR) Not detected (Not Detect) Parainfluenza 1 (PCR) Not detected (Not Detect) Parainfluenza 2 (PCR) Not detected (Not Detect) Parainfluenza 3 (PCR) Not detected (Not Detect) Parainfluenza 4 (PCR) Not detected (Not Detect) RSV (PCR) Not detected (Not Detect) Entero/Rhino (PCR) Not detected (Not Detect) Imaging Data Chest x-ray: Radiologist's Impression: PROCEDURE: XR CHEST 1V INDICATIONS: Shortness of breath TECHNIQUE: One view of the chest was acquired. COMPARISON: None. FINDINGS: Surgical changes and devices: None. Lungs and pleura: Right midlung opacity. No pleural effusions or pneumothorax. Mediastinum: Mediastinal contours appear normal. Heart size is normal. Bones and chest wall: No suspicious bony lesions. Overlying soft tissues appear unremarkable. IMPRESSION: Right midlung opacity concerning for pneumonia. Recommend follow-up radiograph after treatment to ensure resolution and exclude underlying neoplasm. Dictated by: Jared Aguilera M.D. on 07/21/2024 at 11:25 Approved by: Jared Aguilera M.D. on 07/21/2024 at 11:25 CT scan - chest: Radiologist's Impression: PROCEDURE: CT ANGIO CHEST PE PROTOCOL INDICATIONS: hypoxia dimer 6000 (High) TECHNIQUE: After the administration of intravenous contrast, 2 mm thick sections acquired from the pulmonary apices to the posterior costophrenic angles. 3-dimensional maximum intensity projection (MIP) coronal and sagittal reformats were then acquired through the thorax. For radiation dose reduction, the following was used: automated exposure control, adjustment of mA and/or kV according to patient size. COMPARISON: [facility], , XR CHEST 1V, 07/21/2024, 10:35. FINDINGS: Image quality: Diagnostic. Pulmonary arteries: Pulmonary arteries are normal in size, and demonstrate no intraluminal filling defects to suggest central pulmonary embolism. Lower Neck: No enlarged lymph nodes. Thyroid: No thyroid nodules which require sonographic follow up, per consensus guidelines. Axillae: No enlarged lymph nodes. Chest Wall: Unremarkable. Bones: No suspicious osseous lesion. Lungs and Pleura: No pneumothorax or pleural effusions. Small consolidation at the inferior aspect of the right upper lobe, (5/145). This corresponds to the x-ray finding. There are additional small consolidative opacities bilaterally. There is bronchial wall thickening and a few areas of distal mucus airway plugging. The central airways are clear. No obvious mass. Heart: Heart size is within normal limits. No pericardial effusion. Thoracic Vessels: No aortic aneurysm. Mediastinum and Jennifer: Shotty mediastinal and hilar lymph nodes Esophagus: No wall thickening. No hiatal hernia. Upper Abdomen: Visualized upper abdomen solid organs and bowel loops appear normal. IMPRESSION: 1. No pulmonary embolism. 2. Multifocal pneumonia. Recommend follow-up to resolution. 3. Shotty mediastinal and hilar lymph nodes. Favor reactive etiology. Dictated by: Adi Ochoa M.D. on 07/21/2024 at 13:10 ECG Data Attestation: I personally reviewed and interpreted this ECG as follows: Prior ECG tracings: available for review Interpretation: Normal sinus rhythm rate 111 CA interval 130 QRS 82 QTC 437 artifact noted T-wave inversion noted in lead [address] changes MDM Narrative Medical decision making narrative: [facility] CC: Shortness of breath weakness Complicating co-morbidities: Seizure disorder well-controlled Differential considered: Pneumonia acute coronary syndrome pulmonary embolus Exam documented above, pertinent findings include: Decreased breath sounds bilaterally no rales rhonchi or conversational dyspnea Lab Test results independently reviewed as above. Pertinent findings: WBC 25.5 with left shift Lactate 1.9 Creatinine 1.27 previously 0.7 Troponin 0.184-->0.136 BNP 1970 Respiratory panel negative D-dimer 6355 Independently reviewed EKG as above: No acute ischemia T-wave inversions noted in lead 2 no priors to compare no ST elevation or depression artifact noted Imaging studies independently reviewed: Chest x-ray does show pneumonia As CT confirms pneumonia without pulmonary embolism Consultations: Dr. Hernandez's updated patient's symptoms test results and accepts Treatments: Fluid, Rocephin azithromycin Re-evaluations: Patient appears well she has no significant conversational dyspnea she does require about 1 L of O2 at rest Discussion: Patient 78-year-old female presents today with increasing weakness cough and shortness of breath. Clinically she has community-acquired pneumonia this is found on x-ray she has leukocytosis of 25 and a normal lactate. She has no sign of severe sepsis her lactate is 1.9 she was not given sepsis fluids. She does have elevated troponin which I suspect is demand ischemia and not acute coronary syndrome. It is down trending she has no EKG changes or chest pain. She also has a significantly elevated D-dimer it is not age adjust rule out with the years criteria. CT angio confirms pneumonia and does not show any evidence of pulmonary embolism. Discharge Plan Departure Patient Disposition: Admitted As Inpatient Clinical Impression: Pneumonia, Acute non-ST elevation myocardial infarction (NSTEMI) Admit Date/Time: 07/21/24 15:33 Admit Provider: Domenico Hernandez
[2024-07-21 11:04] LABS: Alanine Aminotransferase 32 IU/L (<35); Albumin Globulin Ratio 1.1 (1.0-2.8); Alkaline Phosphatase 147 U/L (38-126); Aspartate Aminotransferase 55 IU/L (14-36); BUN Creatinine Ratio 30.7 (6-22); Bilirubin Total 0.6 mg/dL (0.2-1.3); Blood Urea Nitrogen 39 mg/dL (7-17); Calcium 9.3 mg/dL (8.4-10.2); Carbon Dioxide 26 mmol/L (22-32); Chloride 97 mmol/L (98-107); Estimated Glomerular Filt Rate 43 mL/min (>60); Globulin 3.6 g/dL (1.7-4.1); Glucose 176 mg/dL (80-110); HEMOLYSIS 16 (0-50); Lactate (Lactic Acid) 1.9 mmol/L (0.7-2.1); Potassium 3.9 mmol/L (3.4-5.1); Sodium 134 mmol/L (137-145); Total Protein 7.6 g/dL (6.3-8.2)
[2024-07-21 11:15] LABS: NT-proBNP (BNP-Adult 18+) 1970 pg/mL (<450)
[2024-07-21 11:17] LABS: Troponin I 0.184 ng/mL (0.01-0.034)
[2024-07-21] MEDS: ALBUTEROL/IPRATROPIUM 3 ML AMPUL INH (11:30)
[2024-07-21] MEDS: SODIUM CHLORIDE 0.9% 1,000 ML 1000 ML IV (11:36)
[2024-07-21] MEDS: ASPIRIN 81 MG CHEW TAB 324 MG PO (11:40)
[2024-07-21] MEDS: cefTRIAXone 1,000 MG in SODIUM CHLORIDE 0.9% 100 ML 200 MG IV (11:41)
[2024-07-21 11:55] LABS: D Dimer 6355 ng/ml (<500)
--- NOTE | 2024-07-21 12:02 | DI.CT.S_ITS ---
PROCEDURE: CT ANGIO CHEST PE PROTOCOL INDICATIONS: hypoxia dimer 6000 (High) TECHNIQUE: After the administration of intravenous contrast, 2 mm thick sections acquired from the pulmonary apices to the posterior costophrenic angles. 3-dimensional maximum intensity projection (MIP) coronal and sagittal reformats were then acquired through the thorax. For radiation dose reduction, the following was used: automated exposure control, adjustment of mA and/or kV according to patient size. COMPARISON: [facility], CR, XR CHEST 1V, 07/21/2024, 10:35. FINDINGS: Image quality: Diagnostic. Pulmonary arteries: Pulmonary arteries are normal in size, and demonstrate no intraluminal filling defects to suggest central pulmonary embolism. Lower Neck: No enlarged lymph nodes. Thyroid: No thyroid nodules which require sonographic follow up, per consensus guidelines. Axillae: No enlarged lymph nodes. Chest Wall: Unremarkable. Bones: No suspicious osseous lesion. Lungs and Pleura: No pneumothorax or pleural effusions. Small consolidation at the inferior aspect of the right upper lobe, (5/145). This corresponds to the x-ray finding. There are additional small consolidative opacities bilaterally. There is bronchial wall thickening and a few areas of distal mucus airway plugging. The central airways are clear. No obvious mass. Heart: Heart size is within normal limits. No pericardial effusion. Thoracic Vessels: No aortic aneurysm. Mediastinum and Jennifer: Shotty mediastinal and hilar lymph nodes Esophagus: No wall thickening. No hiatal hernia. Upper Abdomen: Visualized upper abdomen solid organs and bowel loops appear normal. IMPRESSION: 1. No pulmonary embolism. 2. Multifocal pneumonia. Recommend follow-up to resolution. 3. Shotty mediastinal and hilar lymph nodes. Favor reactive etiology. Dictated by: Adi Ochoa M.D. on 07/21/2024 at 13:10 Approved by: Adi Ochoa M.D. on 07/21/2024 at 13:18
[2024-07-21] MEDS: AZITHROMYCIN 500 MG in DEXTROSE 5% IN WATER 250 ML 250 MG IV (12:08)
[2024-07-21 12:18] LABS: Adenovirus Not Detected (Not Detect); B. parapertussis Not Detected (Not Detecte); Bordetella pertussis Not Detected (Not Detect); Chlamydophila pneumoniae Not Detected (Not Detect); Coronavirus 229E Not Detected (Not Detect); Coronavirus HKU1 Not Detected (Not Detect); Coronavirus NL 63 Not Detected (Not Detect); Coronavirus OC43 Not Detected (Not Detect); Human Metapneumovirus Not Detected (Not Detect); Human Rhinovirus/Enterovirus Not Detected (Not Detect); Influenza A Not Detected (Not Detect); Influenza B Not Detected (Not Detect); Mycoplasma pneumoniae Not Detected (Not Detect); Parainfluenza Virus 1 Not Detected (Not Detect); Parainfluenza Virus 2 Not Detected (Not Detect); Parainfluenza Virus 3 Not Detected (Not Detect); Parainfluenza Virus 4 Not Detected (Not Detect); Respiratory Syncytial Virus Not Detected (Not Detect); SARS- CoV-2 Not Detected (Not Detecte)
[2024-07-21 12:57] LABS: Creatine Kinase 37 U/L (30-135)
[2024-07-21 13:11] LABS: Troponin I 0.136 ng/mL (0.01-0.034)
--- NOTE | 2024-07-21 15:52 | P.HP_ITS ---
History of Present Illness History of Present Illness Date Patient Seen: 07/21/24 Time Patient Seen: 15:52 Chief complaint: cough, No energy, thick green phlegm Narrative: Patient was a 77-year-old female with history of seizure disorder and hyperlipidemia who presents with 2 days of cough and increased dyspnea with weakness. She was had some symptoms over the last month. She was noted a fair amount of dyspnea with exertion but denies any leg edema or orthopnea. She presented to the ED where imaging was concerning for pneumonia and was started on IV antibiotics. She has had a cough for 2 weeks, productive of green phlegm. No fevers or chills. Some dyspnea on exertion. No chest pain. No nausea. She denies URI symptoms, no change in appetite. No urinary symptoms or diarrhea. [facility] Medical History Lower urinary tract symptoms (LUTS) History of UTI Postmenopausal atrophic vaginitis Seizure disorder Neurological disease Surgical History History of abdominal hysterectomy History of breast biopsy History of bladder suspension procedure History of bladder surgery Family History Mother Cancer Sister Cancer Inflammatory bowel disease Social History marital status: household members: spouse occupational status: employed Smoking Status: Former smoker Tobacco: How many years used: 40 alcohol intake: former caffeine: Yes Meds Home Medications and Allergies Home Medications Medication Instructions Recorded Confirmed Type phenytoin sodium extended 100 mg 100 mg PO TID 07/21/24 07/21/24 History capsule (Dilantin Extended) rosuvastatin 5 mg PO DAILY 07/21/24 07/21/24 History Allergies Allergy/AdvReac Type Severity Reaction Status Date / Time codeine [CODEINE] Allergy Mild ITCHING Verified 11/26/23 16:59 Penicillins [PENICILLINS] Allergy Mild ITCHING Verified 11/26/23 16:59 cortisone Allergy Verified 11/26/23 16:59 Review of Systems Review of Systems Narrative: All else reviewed and otherwise unremarkable except as noted in the history and physical. Exam Vital Signs (past 8 hours): - 07/21/24 10:30 07/21/24 10:31 07/21/24 10:31 Temperature 96.8 F L Pulse Rate 114 H 117 H Respiratory Rate 24 Blood Pressure 135/73 147/67 H Pulse Oximetry 88 L 89 L Oxygen Delivery Method Room Air Oxygen Flow Rate 07/21/24 10:45 07/21/24 10:45 07/21/24 11:00 Temperature Pulse Rate 112 H Respiratory Rate 35 H Blood Pressure 153/76 H 129/64 Pulse Oximetry 90 L Oxygen Delivery Method Oxygen Flow Rate 07/21/24 11:00 07/21/24 11:15 07/21/24 11:15 Temperature Pulse Rate 107 H 110 H Respiratory Rate 16 37 H Blood Pressure 145/73 H Pulse Oximetry 94 92 Oxygen Delivery Method Nasal Cannula Oxygen Flow Rate 2 07/21/24 11:30 07/21/24 11:30 07/21/24 11:34 Temperature Pulse Rate 103 H 102 H Respiratory Rate 23 18 Blood Pressure 112/61 Pulse Oximetry 93 92 Oxygen Delivery Method Nasal Cannula Oxygen Flow Rate 2 07/21/24 11:45 07/21/24 11:45 07/21/24 12:00 Temperature Pulse Rate 105 H 103 H Respiratory Rate 30 H 19 Blood Pressure 143/68 H Pulse Oximetry 93 93 Oxygen Delivery Method Nasal Cannula Oxygen Flow Rate 2 07/21/24 12:00 07/21/24 12:28 07/21/24 12:28 Temperature Pulse Rate 105 H Respiratory Rate 22 Blood Pressure 143/67 H 131/83 Pulse Oximetry 99 Oxygen Delivery Method Oxygen Flow Rate 07/21/24 12:30 07/21/24 12:30 07/21/24 12:45 Temperature Pulse Rate 102 H 96 H Respiratory Rate 20 20 Blood Pressure 129/64 Pulse Oximetry 98 99 Oxygen Delivery Method Nasal Cannula Oxygen Flow Rate 2 07/21/24 12:45 07/21/24 13:00 07/21/24 13:00 Temperature Pulse Rate 96 H Respiratory Rate 16 Blood Pressure 121/65 113/56 L Pulse Oximetry 99 Oxygen Delivery Method Oxygen Flow Rate 07/21/24 13:15 07/21/24 13:15 07/21/24 13:30 Temperature Pulse Rate 96 H 94 H Respiratory Rate 18 24 Blood Pressure 116/57 L Pulse Oximetry 99 97 Oxygen Delivery Method Oxygen Flow Rate 07/21/24 13:31 07/21/24 13:31 07/21/24 13:45 Temperature Pulse Rate 93 H 97 H Respiratory Rate 16 18 Blood Pressure 105/57 L Pulse Oximetry 98 92 Oxygen Delivery Method Nasal Cannula Oxygen Flow Rate 2 07/21/24 13:45 07/21/24 14:00 07/21/24 14:00 Temperature Pulse Rate 114 H Respiratory Rate 37 H Blood Pressure 112/59 L 110/56 L Pulse Oximetry 91 Oxygen Delivery Method Room Air Oxygen Flow Rate 07/21/24 14:15 07/21/24 14:15 07/21/24 14:30 Temperature Pulse Rate 94 H Respiratory Rate 28 H Blood Pressure 117/57 L 106/58 L Pulse Oximetry 92 Oxygen Delivery Method Oxygen Flow Rate 07/21/24 14:30 07/21/24 14:45 07/21/24 14:45 Temperature Pulse Rate 92 H 91 H Respiratory Rate 20 16 Blood Pressure 107/58 L Pulse Oximetry 90 L 92 Oxygen Delivery Method Room Air Oxygen Flow Rate 07/21/24 14:46 07/21/24 14:46 07/21/24 15:00 Temperature Pulse Rate 89 Respiratory Rate 20 Blood Pressure Pulse Oximetry 88 L 91 97 Oxygen Delivery Method Room Air Nasal Cannula Oxygen Flow Rate 2 2 07/21/24 15:00 Temperature Pulse Rate Respiratory Rate Blood Pressure 107/56 L Pulse Oximetry Oxygen Delivery Method Oxygen Flow Rate Oxygen Delivery Method Nasal Cannula Oxygen Flow Rate 2 Narrative Exam Narrative: NAD, alert and oriented, fluent speech, calm. Normocephalic skull, EOMI, anicteric sclera, symmetric pupils. Oropharynx unremarkable, no droop. Neck supple, midline trachea, no adenopathy. Lungs clear, normal rate and effort. No focal rales. Heart regular, no murmur gallop or rub. Abdomen is soft, non distended and non tender. Extremities are free of edema. Skin is free of rash or lesions. Joints are not swollen or deformed. Judgment appears to be normal. Objective ECG Impression: Normal sinus rhythm rate 111 NJ interval 130 QRS 82 QTC 437 artifact noted T- wave inversion noted in lead [address] changes Imaging Chest x-ray: Radiologist's impression: Right midlung opacity concerning for pneumonia. Recommend follow-up radiograph after treatment to ensure resolution and exclude underlying neoplasm. CT scan - chest: Radiologist's impression: 1. No pulmonary embolism. 2. Multifocal pneumonia. Recommend follow-up to resolution. 3. Shotty mediastinal and hilar lymph nodes. Favor reactive etiology. Labs 07/21/24 10:40 07/21/24 10:40 Labs: Laboratory Results - last 24 hr 07/21/24 07/21/24 07/21/24 10:40 11:14 12:40 WBC 25.3 H RBC 4.45 Hgb 13.5 Hct 41.3 MCV 93.0 MCH 30.3 MCHC 32.6 RDW 13.9 Plt Count 343 Neut % (Auto) 89.0 H Lymph % (Auto) 3.9 L [place] % (Auto) 6.4 Eos % (Auto) 0.3 L Baso % (Auto) 0.4 Neut # (Auto) 38431 H Lymph # (Auto) 1000 L [place] # (Auto) 1600 H Eos # (Auto) 100 Baso # (Auto) 100 PT 15.4 H INR 1.4 H D-Dimer 6355 H Sodium 134 L Potassium 3.9 Chloride 97 L Carbon Dioxide 26 BUN 39 H Creatinine 1.27 H Estimated GFR 43 L BUN/Creatinine Ratio 30.7 H Glucose 176 H Lactate 1.9 Calcium 9.3 Total Bilirubin 0.6 AST 55 H ALT 32 Alkaline Phosphatase 147 H Total Creatine Kinase 37 Troponin I 0.184 H* 0.136 H* NT-Pro-B Natriuret Pep 1970 H Total Protein 7.6 Albumin 4.0 Globulin 3.6 Albumin/Globulin Ratio 1.1 Chlamy pneumoniae PCR Not detected Adenovirus (PCR) Not detected B. pertussis DNA (PCR) Not detected B.parapertussis DNA PCR Not detected Coronavirus OC43 (PCR) Not detected Coronavirus HKU1 (PCR) Not detected Coronavirus 229E (PCR) Not detected SARS-CoV-2 (PCR) Not detected Coronavirus NL63 (PCR) Not detected Human Metapneumovir PCR Not detected Influenza Type A (PCR) Not detected Influenza Type B (PCR) Not detected M. pneumoniae (PCR) Not detected Parainfluenza 1 (PCR) Not detected Parainfluenza 2 (PCR) Not detected Parainfluenza 3 (PCR) Not detected Parainfluenza 4 (PCR) Not detected RSV (PCR) Not detected Entero/Rhino (PCR) Not detected Assessment & Plan Assessment & Plan narrative: 1. Community-acquired pneumonia, present on admission and active. 2. Acute hypoxic respiratory failure, present on admission and active. 3. Seizure disorder, present on admission and active. 4. Hyperlipidemia, present on admission and active. Plan: -IV ceftriaxone and azithromycin for pneumonia. -blood and sputum cultures. -wean off oxygen as able. -out of bed, encourage ambulation. -continue routine medications. Anticipate a 2 midnight hospital stay for treatment of pneumonia. Full resuscitation RASHIDA is July 23. Time-Based Coding :: 35 min spent with patient and on the chart (including review of chart, obtaining history, exam, reviewing outside data, placing orders, documenting exam and treatment plan, and counseling patient) on 07/21. Quality MIPS - Admit I confirm the patient?s Advance Care Plan is present, Code status is documented, Surrogate decision maker is in patient?s record [If Yes, STOP here]: Yes MIPS - Meds 'Current medications' to include all prescriptions, [id number] products, herbals, cannabis/cannabidiol products, and vitamin/mineral/dietary (nutritional) supplements. I have utilized all available resources to obtain, update, or review the patient?s current medications. [If Yes, STOP here]: Yes
--- NOTE | 2024-07-21 16:02 | CM.DANOTE ---
DCP Assessment Note: Pt is a 78yo female, resident of [place], is admitted for pneumonia and hypoxia. Pt lives in a house with her , [place]. Pt's Primary Care Provider is Dr. Shira Nelson MD and insurance is [employer] and Medicare. Reviewed chart and team rounds for pt's medical status and initial discharge needs. ED SHEET ROCK TAPER HELPER met w/patient at bedside; introduced self and role. Patient was found in bed, alert and oriented, cooperative with assessment. Pt confirmed living situation and good support in . Pt expressed preference in returning home when medically cleared. Pt has no prior hx of working with a home health agency or transfer to SNF Rehab. Plan: Admitted for IV abx to treat pneumonia and oxygen therapy, anticipating discharge home when medically cleared. CM team will follow closely for coordination of discharge plans. MARILIA Singleton Discharge Planning/Care Management CM Discharge Assessment Start: 07/21/24 15:58 Freq: Status: Active Protocol: Document 07/21/24 15:58 MW (Rec: 07/21/24 16:02 MW [id number]) Discharge Planning Assessment Assigned Supervisor Felling Bucking KIARA Buenrostro DPOA/Assigned Designee Name [place], Spouse Contact Information [phone] Advance Directives? No Advance Directives on File No History Provided By Patient,Medical Record Has Patient been admitted in last 30 No days? Prior Living Arrangements House Comment [facility] Household Members spouse Type of transporation used prior to Drives own vehicle admit Independent with ADL's Yes Is patient alert and oriented? Yes Caregiver for Another No Patient/Family Preference Home with Home Health Barriers to Discharge No Transportation Arrangement Patient drove herself to ED and is hoping to drive herself home when appropriate. Referrals Initiated None needed Review Status In Process Please Provide Date Initial DC 07/21/24 Assessment Was Performed Next Review Type Continued Stay Review
[2024-07-21] MEDS: SODIUM CHLORIDE 0.9% FLUSH 10 ML IV (21:13)
[2024-07-21] MEDS: SENNOSIDES 8.6 MG TABLET 17.2 MG PO (21:13)
[2024-07-22] MEDS: BENZONATATE 100 MG CAPSULE PO ×2 (00:12→09:33)
[2024-07-22] MEDS: BENZOCAINE/MENTHOL 1 LOZ PKT 1 EACH PO ×2 (00:12→09:34)
[2024-07-22] MEDS: PHENYTOIN ER 100 MG CAPSULE 200 MG PO ×2 (01:23→21:51)
[2024-07-22 03:00] VITALS: BP 134/73; PULSE 105; RESP 20; TEMP 36.8; O2SAT 96
[2024-07-22 06:07] LABS: Add Manual Diff / Slide Review NO; Basophils Absolute Auto 100 /uL (0-100); Basophils Percent Auto 0.5 % (0-2); Eosinophils Absolute Auto 300 /uL (0-450); Eosinophils Percent Auto 2.2 % (2-4); Hematocrit 34.8 % (36-46); Hemoglobin 11.5 g/dL (12.0-16.0); Lymphocytes Absolute Auto 1000 /uL (1100-4500); Lymphocytes Percent Auto 6.2 % (25-40); Mean Corpuscular HGB Conc 32.9 % (30-36); Mean Corpuscular Hemoglobin 29.8 PG (26-34); Mean Corpuscular Volume 90.6 fL (80-100); Monocytes Absolute Auto 1300 /uL (0-900); Monocytes Percent Auto 8.5 % (3-14); Neutrophils Absolute Auto 12700 /uL (1500-7000); Neutrophils Percent Auto 82.6 % (50-75); Platelet Count 388 X10^3/uL (150-400); Red Blood Cell Count 3.85 X10^6/uL (4.0-5.2); White Blood Cell Count 15.4 X10^3/uL (4.5-11.0)
[2024-07-22 06:29] LABS: BUN Creatinine Ratio 35.6 (6-22); Blood Urea Nitrogen 31 mg/dL (7-17); Calcium 8.9 mg/dL (8.4-10.2); Carbon Dioxide 29 mmol/L (22-32); Chloride 99 mmol/L (98-107); Estimated Glomerular Filt Rate > 60 mL/min (>60); Glucose 130 mg/dL (80-110); HEMOLYSIS < 15 (0-50); Potassium 4.2 mmol/L (3.4-5.1); Sodium 134 mmol/L (137-145)
--- NOTE | 2024-07-22 07:53 | DI.ECHO.S_ITS ---
[facility]+ [facility] : : [address] : : [place] : : [id number] : : Phone: [phone] Echocardiogram Report + + :Name: SANDY GRAY Study Date: 07/22/2024 Height: 65.5 in: :[facility] ReadingLocation: Weight: 155 lb : : Gender: Female BSA: 1.8 m2 : :: 1945 Age: 78 yrs BP: 134/73 mmHg: :Reason For Study: ELEVATED TROPONIN, DYSPNEA : :Ordering Physician: NOEMÍ, : :DAMIEN Painter Performed By: Sharon Tovar : :Referring: DAMIEN DOWD : + + Interpretation Summary 1. Normal LV contractility. EF of 55-60%. No WMA. No LVH. Grade 1 diastolic dysfunction. 2. Normal RV contractility. 3. Normal chamber sizes. 4. No significant valvular abnormalities. 5. No obvious intracardiac shunts. 6. No obvious intracardiac masses/thrombi. 7. No hemodynamically significant pericardial effusion present. 8. Low right sided filling pressures. Conclusion: Normal biventricular systolic function without significant valvular abnormalities. Procedure: A two-dimensional transthoracic echocardiogram with color flow and Doppler was performed. The study quality was technically adequate. There is no prior echocardiogram noted for this patient. The patient was in sinus rhythm with heart rates between 88-95 bpm during the exam. Left Ventricle: The left ventricle is normal in size and wall thickness. The ejection fraction is estimated to be 55-60%. Right Ventricle: The right ventricle is normal in size and function. Atria: The left atrial size is normal. Right atrial size is normal. There is no Doppler evidence for an interatrial shunt. Mitral Valve: The mitral valve is normal in structure and function. There is no mitral regurgitation noted. Aortic Valve: The aortic valve is trileaflet. The aortic valve opens well. There is no aortic valve stenosis. No aortic regurgitation is present. Tricuspid Valve: The tricuspid valve is normal in structure and function. There is trace tricuspid regurgitation. The right ventricular systolic pressure is estimated to be at least 30 mmHg based on an estimated right atrial pressure of 3 mm Hg. Pulmonic Valve: The pulmonic valve leaflets are thin and pliable; valve motion is normal. There is trace pulmonic regurgitation. Great Vessels: The aortic root is normal size. The ascending aorta could not be visualized. The IVC is of normal diameter and collapses greater than 50% with a sniff. This suggests a low right atrial pressure of 3 mm Hg. Pericardium/ Pleura There is no pericardial effusion. There is no pleural effusion. MMode/2D Measurements & Calculations LVIDd: 5.2 cm LVOT diam: 2.0 cm LVIDs: 3.6 cm Ao root diam: 3.2 cm FS: 30.7 % Ao Arch Diam (Prox Trans): 2.5 cm EPSS: 0.95 cm IVSd: 0.69 cm LVPWd: 0.79 cm LV champagne. diameter/BSA (cm/m^2): 2.9 LV sys. diameter/BSA (cm/m^2): 2.0 LA A2 area: 18.3 cm2 RA long axis: 4.9 cm LA A4 area: 14.2 cm2 RA area: 15.3 cm2 LA length (vol): 4.6 cm RA vol: 41.0 ml LA vol: 48.1 ml RA : 23.0 ml/m2 LA vol index: 26.9 ml/m2 IVC diam: 1.7 cm RVD1 (basal): 3.7 cm RVD2 (mid): 3.2 cm TAPSE: 1.7 cm Doppler Measurements & Calculations Ao V2 max: 137.2 cm/sec LVOT Max Cheng: 108.4 cm/sec Ao V2 mean: 102.1 cm/sec LV V1 max P.7 mmHg Ao max P.5 mmHg LV V1 VTI: 21.0 cm Ao mean P.5 mmHg ROBERT(I,D): 2.5 cm2 Ao V2 VTI: 26.4 cm ROBERT(V,D): 2.5 cm2 sev ratio: 0.80 ROBERT indexed to BSA (cm^2/m^2): 1.4 MV E max cheng: 61.9 cm/sec TR max cheng: 261.2 cm/sec MV A max cheng: 82.8 cm/sec TR max P.3 mmHg MV E/A: 0.75 PA V2 max: 90.8 cm/sec Med Peak E' Cheng: 7.5 cm/sec PA V2 mean: 63.4 cm/sec E/E' med: 8.3 PA mean P.8 mmHg Lat Peak E' Cheng: 9.2 cm/sec PA pr(Accel): 29.3 mmHg E/E' lat: 6.7 E/e' average: 7.5 MV dec time: 0.22 sec SV(LVOT): 66.8 ml Reading Physician:
[2024-07-22 09:05] LABS: Troponin I 0.059 ng/mL (0.01-0.034)
[2024-07-22 09:07] VITALS: O2SAT 94
[2024-07-22] MEDS: ATORVASTATIN 20 MG TABLET 10 MG PO (09:33)
[2024-07-22] MEDS: ENOXAPARIN 40 MG/0.4 ML SYRINGE SUBCUT (09:33)
[2024-07-22] MEDS: ASPIRIN EC 81 MG TABLET PO (09:33)
[2024-07-22] MEDS: SODIUM CHLORIDE 0.9% FLUSH 10 ML IV ×2 (09:34→21:52)
[2024-07-22] MEDS: carvediloL 3.125 MG TABLET PO ×2 (09:35→21:51)
[2024-07-22] MEDS: PHENYTOIN ER 100 MG CAPSULE PO (09:39)
[2024-07-22 11:00] VITALS: BP 149/76; PULSE 97; RESP 19; TEMP 36.8; O2SAT 95
[2024-07-22] MEDS: cefTRIAXone 1,000 MG in SODIUM CHLORIDE 0.9% 100 ML 200 MG IV (11:57)
[2024-07-22] MEDS: AZITHROMYCIN 500 MG in DEXTROSE 5% IN WATER 250 ML 250 MG IV (12:50)
--- NOTE | 2024-07-22 13:15 | PM.PN.1 ---
Subjective Subjective Interval history: She was admitted for pneumonia he was noted to have an abnormal ECG with T-wave abnormalities in lateral leads. She denies any chest pain or known cardiac history. Subjective: She was improved today, coughing was not feels less short of breath. She remains on oxygen nasal cannula. Exam Vital Signs (past 8 hours): - 07/22/24 09:07 07/22/24 11:00 Temperature 98.2 F Pulse Rate 97 H Respiratory Rate 19 Blood Pressure 149/76 H Pulse Oximetry 94 95 Oxygen Delivery Method Nasal Cannula Oxygen Flow Rate 2 2 Fraction of Inspired Oxygen 28 Fraction of Inspired Oxygen 28 SaO2/FiO2 Ratio 335 Oxygen Delivery Method Nasal Cannula Oxygen Flow Rate 2 Narrative Exam Narrative: NAD, alert and oriented. Fluent speech. Lungs are clear, normal rate and effort. Heart is regular, no murmur gallop or rub. Abdomen is soft, non distended. Extremities are free of edema. Objective ECG Impression: Sinus tachycardia with premature atrial complexes Right superior axis deviation T wave abnormality, consider inferolateral ischemia Imaging Echo: Radiologist's impression: 1. Normal LV contractility. EF of 55-60%. No WMA. No LVH. Grade 1 diastolic dysfunction. 2. Normal RV contractility. 3. Normal chamber sizes. 4. No significant valvular abnormalities. 5. No obvious intracardiac shunts. 6. No obvious intracardiac masses/thrombi. 7. No hemodynamically significant pericardial effusion present. 8. Low right sided filling pressures. Conclusion: Normal biventricular systolic function without significant valvular abnormalities. Labs 07/22/24 05:50 07/22/24 05:50 Labs: Laboratory Results - last 24 hr 07/22/24 07/22/24 05:50 08:20 WBC 15.4 H RBC 3.85 L Hgb 11.5 L Hct 34.8 L MCV 90.6 MCH 29.8 MCHC 32.9 RDW 14.0 Plt Count 388 Neut % (Auto) 82.6 H Lymph % (Auto) 6.2 L [place] % (Auto) 8.5 Eos % (Auto) 2.2 Baso % (Auto) 0.5 Neut # (Auto) 93507 H Lymph # (Auto) 1000 L [place] # (Auto) 1300 H Eos # (Auto) 300 Baso # (Auto) 100 Sodium 134 L Potassium 4.2 Chloride 99 Carbon Dioxide 29 BUN 31 H Creatinine 0.87 Estimated GFR > 60 BUN/Creatinine Ratio 35.6 H Glucose 130 H Calcium 8.9 Troponin I 0.059 H [facility] Medical History Lower urinary tract symptoms (LUTS) History of UTI Postmenopausal atrophic vaginitis Seizure disorder Neurological disease Surgical History History of abdominal hysterectomy History of breast biopsy History of bladder suspension procedure History of bladder surgery Family History Mother Cancer Sister Cancer Inflammatory bowel disease Social History marital status: household members: spouse occupational status: employed Smoking Status: Former smoker Tobacco: How many years used: 40 alcohol intake: former caffeine: Yes Assessment & Plan Assessment & Plan narrative: 1. Community-acquired pneumonia, present on admission and active. 2. Acute hypoxic respiratory failure, present on admission and active. 3. Seizure disorder, present on admission and active. 4. Hyperlipidemia, present on admission and active. 5. Demand ischemia, present on admission and improved. Her last troponin is decreased. She was no chest pain. Echo is unremarkable without wall motion abnormalities. Plan: -IV ceftriaxone and azithromycin for pneumonia. -blood and sputum cultures. -wean off oxygen as able. -out of bed, encourage ambulation. -continue routine medications. -we will add aspirin and beta blockade at low dose for now. Anticipate a 2 midnight hospital stay for treatment of pneumonia. Full resuscitation RASHIDA is July 23. Time-Based Coding :: [TOTAL MINUTES] spent with patient and on the chart (including review of chart, obtaining history, exam, reviewing outside data, placing orders, documenting exam and treatment plan, and counseling patient) on [DATE]. Quality VTE Deep Vein Thrombosis/Pulmonary Embolism Present on Admission: No
[2024-07-22 18:00] VITALS: BP 123/93; PULSE 94; RESP 20; TEMP 36; O2SAT 95
[2024-07-22 21:16] VITALS: BP 138/76; PULSE 96; RESP 18; TEMP 36.5; O2SAT 93
[2024-07-22 21:51] VITALS: BP 125/72; PULSE 89
[2024-07-22] MEDS: SENNOSIDES 8.6 MG TABLET 17.2 MG PO (21:52)
[2024-07-23 01:00] VITALS: BP 141/80; PULSE 88; RESP 18; TEMP 36.7; O2SAT 97
[2024-07-23 04:30] VITALS: BP 123/68; PULSE 86; RESP 18; TEMP 36.3; O2SAT 97
[2024-07-23 06:07] LABS: Add Manual Diff / Slide Review NO; Basophils Absolute Auto 0 /uL (0-100); Basophils Percent Auto 0.3 % (0-2); Eosinophils Absolute Auto 500 /uL (0-450); Hematocrit 33.7 % (36-46); Hemoglobin 11.1 g/dL (12.0-16.0); Lymphocytes Absolute Auto 1000 /uL (1100-4500); Lymphocytes Percent Auto 8.4 % (25-40); Monocytes Absolute Auto 1200 /uL (0-900); Monocytes Percent Auto 9.8 % (3-14); Neutrophils Absolute Auto 9500 /uL (1500-7000); Neutrophils Percent Auto 77.5 % (50-75); Platelet Count 428 X10^3/uL (150-400); White Blood Cell Count 12.3 X10^3/uL (4.5-11.0)
[2024-07-23 08:00] VITALS: BP 135/72; PULSE 92; RESP 21; TEMP 36.2; O2SAT 96
[2024-07-23 08:09] LABS: BUN Creatinine Ratio 38.1 (6-22); Blood Urea Nitrogen 24 mg/dL (7-17); Carbon Dioxide 31 mmol/L (22-32); Chloride 100 mmol/L (98-107); Estimated Glomerular Filt Rate > 60 mL/min (>60); Glucose 120 mg/dL (80-110); HEMOLYSIS < 15 (0-50); Potassium 4.2 mmol/L (3.4-5.1); Sodium 134 mmol/L (137-145)
[2024-07-23] MEDS: ATORVASTATIN 20 MG TABLET 10 MG PO (09:10)
[2024-07-23] MEDS: ENOXAPARIN 40 MG/0.4 ML SYRINGE SUBCUT (09:10)
[2024-07-23] MEDS: BENZOCAINE/MENTHOL 1 LOZ PKT 1 EACH PO (09:11)
[2024-07-23] MEDS: ASPIRIN EC 81 MG TABLET PO (09:11)
[2024-07-23] MEDS: BENZONATATE 100 MG CAPSULE PO (09:11)
[2024-07-23] MEDS: carvediloL 3.125 MG TABLET PO (09:11)
[2024-07-23] MEDS: PHENYTOIN ER 100 MG CAPSULE PO (09:13)
[2024-07-23] MEDS: SODIUM CHLORIDE 0.9% FLUSH 10 ML IV (09:14)
[2024-07-23 09:24] VITALS: O2SAT 90
[2024-07-23 09:35] VITALS: O2SAT 90
--- NOTE | 2024-07-23 11:31 | PM.DS.1 ---
History of Present Illness History of Present Illness Chief complaint: cough, No energy, thick green phlegm Narrative: Patient was a 77-year-old female with history of seizure disorder and hyperlipidemia who presents with 2 days of cough and increased dyspnea with weakness. She was had some symptoms over the last month. She was noted a fair amount of dyspnea with exertion but denies any leg edema or orthopnea. She presented to the ED where imaging was concerning for pneumonia and was started on IV antibiotics. She has had a cough for 2 weeks, productive of green phlegm. No fevers or chills. Some dyspnea on exertion. No chest pain. No nausea. She denies URI symptoms, no change in appetite. No urinary symptoms or diarrhea. Discharge Providers Provider Date of admission: 07/21/24 15:33 Discharge Date: 07/23/24 Primary care physician: Shira Nelson MD Discharge provider: Domenico Hernandez MD Summary Hospital Course Discharge Diagnosis: 1. Community-acquired pneumonia, present on admission and improved. 2. Acute hypoxic respiratory failure, present on admission and improving. 3. Seizure disorder, present on admission and active. 4. Hyperlipidemia, present on admission and active. 5. Demand ischemia, present on admission and improved. Her last troponin is decreased. She was no chest pain. Echo is unremarkable without wall motion abnormalities. Hospital Course: She was admitted with pneumonia and hypoxic respiratory failure and treated with IV ceftriaxone and azithromycin. She did clinically improve but remained on 2 L of oxygen on the day of discharge. She would desaturate to about 88% on room air. She was 94% on 2 L. She was very motivated to return home and felt that she could handle transient home oxygen over the next week or so why she continued to improve. Overall her breathing was much better. She did have elevated troponin x2 which downtrended relatively quickly with a nonspecific ECG and no chest pain. She was no cardiac history. An echo was obtained which was completely unremarkable. It did start her on low-dose Coreg taken would just after her acute illness has resolved. Status at Discharge Cognitive/behavioral status at discharge: oriented Functional status at discharge: independent ambulation Overall status at discharge: patient is back to baseline Time Spent with Patient Time spent: Greater than 30 minutes Exam Vital Signs (past 8 hours): - 07/23/24 04:30 07/23/24 08:00 07/23/24 09:24 Temperature 97.3 F L 97.1 F L Pulse Rate 86 92 H Respiratory Rate 18 21 Blood Pressure 123/68 135/72 Pulse Oximetry 97 96 90 L Oxygen Delivery Method Nasal Cannula Oxygen Flow Rate 2 2 1 Fraction of Inspired Oxygen 24 07/23/24 09:35 Temperature Pulse Rate Respiratory Rate Blood Pressure Pulse Oximetry 90 L Oxygen Delivery Method Room Air Oxygen Flow Rate 0 Fraction of Inspired Oxygen Fraction of Inspired Oxygen 24 SaO2/FiO2 Ratio 375 Oxygen Delivery Method Room Air Oxygen Flow Rate 0 Narrative Exam Narrative: NAD, alert and oriented. Fluent speech. Lungs are clear, normal rate and effort. Heart is regular, no murmur gallop or rub. Abdomen is soft, non distended. Extremities are free of edema. Objective ECG Impression: Sinus tachycardia with premature atrial complexes Right superior axis deviation T wave abnormality, consider inferolateral ischemia Imaging Multiple studies:: Radiologist's impression: Echo: 1. Normal LV contractility. EF of 55-60%. No WMA. No LVH. Grade 1 diastolic dysfunction. 2. Normal RV contractility. 3. Normal chamber sizes. 4. No significant valvular abnormalities. 5. No obvious intracardiac shunts. 6. No obvious intracardiac masses/thrombi. 7. No hemodynamically significant pericardial effusion present. 8. Low right sided filling pressures. Conclusion: Normal biventricular systolic function without significant valvular abnormalities. Chest CTA: 1. No pulmonary embolism. 2. Multifocal pneumonia. Recommend follow-up to resolution. 3. Shotty mediastinal and hilar lymph nodes. Favor reactive etiology. Chest x-ray: Right midlung opacity concerning for pneumonia. Recommend follow-up radiograph after treatment to ensure resolution and exclude underlying neoplasm. Labs 07/23/24 05:10 07/23/24 05:10 Labs: Laboratory Results - last 24 hr 07/23/24 05:10 WBC 12.3 H RBC 3.70 L Hgb 11.1 L Hct 33.7 L MCV 91.0 MCH 30.0 MCHC 33.0 RDW 14.0 Plt Count 428 H Neut % (Auto) 77.5 H Lymph % (Auto) 8.4 L [place] % (Auto) 9.8 Eos % (Auto) 4.0 Baso % (Auto) 0.3 Neut # (Auto) 9500 H Lymph # (Auto) 1000 L [place] # (Auto) 1200 H Eos # (Auto) 500 H Baso # (Auto) 0 Sodium 134 L Potassium 4.2 Chloride 100 Carbon Dioxide 31 BUN 24 H Creatinine 0.63 Estimated GFR > 60 BUN/Creatinine Ratio 38.1 H Glucose 120 H Calcium 9.0 PFSH Medical History Lower urinary tract symptoms (LUTS) History of UTI Postmenopausal atrophic vaginitis Seizure disorder Neurological disease Surgical History History of abdominal hysterectomy History of breast biopsy History of bladder suspension procedure History of bladder surgery Family History Mother Cancer Sister Cancer Inflammatory bowel disease Social History marital status: household members: spouse occupational status: employed Smoking Status: Former smoker Tobacco: How many years used: 40 alcohol intake: former caffeine: Yes Discharge Assessment & Plan Assessment and Plan Assessment: 1. Community-acquired pneumonia, present on admission and improved. 2. Acute hypoxic respiratory failure, present on admission and improving. 3. Seizure disorder, present on admission and active. 4. Hyperlipidemia, present on admission and active. 5. Demand ischemia, present on admission and improved. Plan of Treatment: She was had 3 days of azithromycin, we will discharge home on cefdinir for an additional 5 days. The patient will be on home oxygen and likely this can be discontinued over the next several days to week. Request that she see her primary care within 1 week. Also advised consideration of an outpatient stress test over the next several weeks. Discharge Plan Discharge Plan Patient Disposition: Home Provider Discharge Comment: She would like to go home today, she is stable for discharge on home oxygen which will likely be temporary for a week or so. We will continue oral antibiotics for her pneumonia. Discharge orders & Medications Prescriptions: New aspirin 81 mg Tablet,Delayed Release (Dr/Ec) 81 mg PO DAILY Qty: 30 0RF carvedilol 3.125 mg Tablet 3.125 mg PO BID Qty: 60 0RF benzonatate 100 mg Capsule 100 mg PO TID PRN (Reason: Cough) Qty: 30 0RF cefdinir 300 mg capsule 300 mg PO BID Qty: 8 0RF Continued rosuvastatin 5 mg PO DAILY phenytoin sodium extended [Dilantin Extended] 100 mg capsule 100 mg PO TID Rx Instructions: 100mg in am and 200mg at bedtime Medication counseling provided by Pharmacist: No Follow up/Referrals: Shira Nelson MD [Primary Care Provider] - Discharge Health Status Multidrug resistant organism: No MDRO Diet/Activity/Treatments Diet: Regular Skin/Wound/Dressing Care Report to your healthcare provider any signs of infection, such as:: chills, fever and night sweats Visit Report/Discharge Packet Instructions: DI for Heart Attack, Heart Attack in Women, Home Oxygen Therapy, DI for Pneumonia -- Adult, DI for Cough -- Adult, How to Measure Oxygen Saturation via Pulse Oximetry, How to Perform Oxygen Therapy via Cannula, How to Prevent Falls, Traveling When You Need Oxygen Therapy Stand Alone Forms: Patient Portal/API Discharge Data Primary Care Provider: Shira Nelson Quality VTE Deep Vein Thrombosis/Pulmonary Embolism Present on Admission: No
[2024-07-23] MEDS: cefTRIAXone 1,000 MG in SODIUM CHLORIDE 0.9% 100 ML 200 MG IV (11:52)
--- NOTE | 2024-07-23 12:10 | CM.DPC ---
DCP Cont. Reviewed EMR and team rounds for status updates. Pt has been medically cleared for home d/c, her family will be transporting her home. No further DCP needs indicated at this time.
[2024-07-23] MEDS: AZITHROMYCIN 500 MG in DEXTROSE 5% IN WATER 250 ML 250 MG IV (12:37)
--- NOTE | 2024-07-23 16:55 | PC.NURSE ---
Discharge: Pt is wanting to go home. She feels ready and tomorrow is Thanksgiving. Seen by MD and he gave discharge instructions. Seen by RT and he arranged home O2. Sats were 88-92 on RA and when she was using the IS. If she fell asleep her RA sats would drop down to 84-86%. How to operate a portable tank was shown and the oxygen company will meet them out there in a couple of hours, They are to call with any problems. Reviewed information for heart attack and more specific women heart issues. Reviewed information for pneumonia and cough. Pt did recieve her IV antibiotics. Reviewed on form when she should call the doctor vs coming to the hospital. She expressed understanding. If she has any concerns she should always call her doctor. She had many questions and these were answered. Pt d/c to home via auto with spouse.
== END 2024-07-23 15:00 | disposition home or self-care (01) | DRG 193 ==
LOC: ED 13:32 → AC 15:45
PROVIDERS: Admitting Provider Hospitalist; Emergency Provider Emergency Medicine; PCP Internal Medicine; Referring Provider Emergency Medicine; Visit Provider Hospitalist
DX: J18.9 Pneumonia, unspecified organism (principal); J96.01 Acute respiratory failure with hypoxia; I24.89 Other forms of acute ischemic heart disease; G40.909 Epilepsy, unspecified, not intractable, without status epilepticus; E78.5 Hyperlipidemia, unspecified; R79.89 Other specified abnormal findings of blood chemistry; Z87.891 Personal history of nicotine dependence
CPT/HCPCS: 36415; 71045; 71275; 80048; 80053; 82550; 83605; 83880; 84484; 85025; 85379; 85610; 87040; 87070; 87077; 87205; 87633; 93005; 93306; 94618; 94640; 94762; 96365; 96366; 96367; 99285; J0696; J1650; Q9967

== ENCOUNTER → 2024-08-18 10:24 | Outpatient (CLI) | payer OTHER, MEDICARE, SELFPAY ==
[2024-07-21 15:49] VITALS: BMI 25.4
--- NOTE | 2024-08-18 10:29 | DI.RAD.S_ITS ---
PROCEDURE: XR CHEST 2V INDICATIONS: FOLLOW-UP PNEUMONIA TECHNIQUE: 2 views of the chest were acquired. COMPARISON: [facility], , XR CHEST 1V, 07/21/2024, 10:35. FINDINGS: Surgical changes and devices: None. Lungs and pleura: Similar appearance of right pulmonary opacities. No pleural effusions or pneumothorax. Mediastinum: Mediastinal contours are normal. Heart size is normal. Bones and chest wall: No suspicious bony abnormalities. Soft tissues appear unremarkable. IMPRESSION: Similar appearance of right pulmonary opacities. Recommend follow-up radiograph in 6-8 weeks after treatment to ensure resolution. Dictated by: Jared Aguilera M.D. on 08/18/2024 at 14:55 Approved by: Jared Aguilera M.D. on 08/18/2024 at 15:01
== END ==
PROVIDERS: PCP Internal Medicine; Referring Provider Internal Medicine; Visit Provider Internal Medicine
DX: J18.9 Pneumonia, unspecified organism (principal)
CPT/HCPCS: 71046

== ENCOUNTER 2024-10-14 03:45 | Emergency (ER) | payer OTHER, MEDICARE, SELFPAY ==
[2024-07-21 15:49] VITALS: BMI 25.4
[2024-10-14 03:55] VITALS: BP 179/77; PULSE 75; RESP 17; TEMP 36.1; O2SAT 94; BMI 29.9
[2024-10-14 04:16] LABS: Appearance Urine UA CLEAR; Bilirubin Urine UA NEGATIVE (NEGATIVE); Color Urine UA YELLOW; Glucose Urine UA NEGATIVE (Negative); Ketones Urine UA NEGATIVE (NEGATIVE); Leukocyte Esterase Urine UA NEGATIVE (NEGATIVE); Nitrite Urine UA NEGATIVE (Negative); Occult Blood Urine UA TRACE-INTACT (Negative); Protein Urine UA NEGATIVE (Negative); Specific Gravity Urine UA 1.015 (1.000-1.035); Urobilinogen Urine UA 0.2 E.U./dL (0.2)
--- NOTE | 2024-10-14 04:16 | ED.FEMALEGU ---
HPI - Female Genitourinary General Chief complaint: Urogenital-Female Stated complaint: bladder infection Time Seen by Provider: 10/14/24 03:52 Source: patient Mode of arrival: Ambulatory History of Present Illness HPI Narrative: 79-year-old female with history of occasional urinary tract infection, not currently on any antibiotics, complains of painful frequent urination since yesterday. She denies fevers. No nausea or vomiting. No back flank pain. No loose stools diarrhea. Related Data Home Medications Medication Instructions Recorded Confirmed phenytoin sodium extended 100 mg 100 mg PO TID 07/21/24 07/21/24 capsule (Dilantin Extended) rosuvastatin 5 mg PO DAILY 07/21/24 07/21/24 Previous Rx's Medication Instructions Recorded aspirin 81 mg tablet,delayed 81 mg PO DAILY #30 tabs 07/23/24 release benzonatate 100 mg capsule 100 mg PO TID PRN Cough #30 caps 07/23/24 carvedilol 3.125 mg tablet 3.125 mg PO BID #60 tabs 07/23/24 cefdinir 300 mg capsule 300 mg PO BID #8 caps 07/23/24 cefdinir 300 mg capsule 300 mg PO BID 7 days #14 caps 10/14/24 Allergies Allergy/AdvReac Type Severity Reaction Status Date / Time codeine [CODEINE] Allergy Mild ITCHING Verified 11/26/23 16:59 Penicillins [PENICILLINS] Allergy Mild ITCHING Verified 11/26/23 16:59 cortisone Allergy Verified 11/26/23 16:59 Patient History Medical History Lower urinary tract symptoms (LUTS) History of UTI Postmenopausal atrophic vaginitis Seizure disorder Neurological disease Surgical History History of abdominal hysterectomy History of breast biopsy History of bladder suspension procedure History of bladder surgery Family History Mother Cancer Sister Cancer Inflammatory bowel disease Exam Narrative Exam Narrative: GENERAL: Well-developed patient, in mild distress. HEAD: Atraumatic. Normocephalic. EYES: Pupils equal round and reactive. Extraocular motions intact. No scleral icterus. No injection or drainage. ENT: Nose without bleeding, purulent drainage. Throat without erythema, tonsillar hypertrophy or exudate. Airway patent. NECK: Trachea midline. Non tender CARDIOVASCULAR: Regular rate and rhythm without murmurs, gallops, or rubs. RESPIRATORY: Clear to auscultation. Breath sounds equal bilaterally. No wheezes, rales, or rhonchi. GASTROINTESTINAL: Abdomen soft, non-tender, nondistended. EXTREMITIES: No edema or joint tenderness. BACK: Nontender without deformity or crepitance. No flank tenderness. NEURO: AOx3. Motor functions grossly nonfocal SKIN: No rash or erythema of visible areas Initial Vital Signs Initial Vital Signs: Vital Signs Temperature 96.9 F L 10/14/24 03:55 Pulse Rate 75 10/14/24 03:55 Respiratory Rate 17 10/14/24 03:55 Blood Pressure 179/77 H 10/14/24 03:55 Pulse Oximetry 94 10/14/24 03:55 Oxygen Delivery Method Room Air 10/14/24 03:55 Course Orders Ordered: ED Orders 10/14/24 04:10 Chlamydia Gonorrhea PCR -URINE Stat Urinalysis and Microscopic Stat Urine Culture Stat Discontinued Medications Cefdinir (Cefdinir 300 Mg Capsule) 300 mg PO NOW ONE Stop: 10/14/24 04:27 Last Admin: 10/14/24 04:32 Dose: 300 mg Documented By: ASHLEY Cephalexin HCl (Cephalexin 250 Mg Capsule) 500 mg PO NOW ONE Stop: 10/14/24 04:23 Last Admin: 10/14/24 04:28 Dose: Not Given Documented By: ASHLEY Vital Signs Vital signs: Vital Signs - 8 hr 10/14/24 03:55 10/14/24 05:01 Temperature 96.9 F L Pulse Rate 75 66 Respiratory Rate 17 16 Blood Pressure 179/77 H 156/67 H Pulse Oximetry 94 96 Oxygen Delivery Method Room Air Room Air MDM - Female Genitourinary Lab Data Attestation: I reviewed the patient's lab results. Lab results narrative: Urinalysis shows minimal abnormalities, urine culture ordered separately however. Urine GC chlamydia requested. Labs: Lab Results 10/14/24 Range/Units 04:10 Urine Color Yellow Urine Appearance Clear Urine pH 6.0 (4.5-8.0) Ur Specific [place] 1.015 (1.000-1.035) Urine Protein Negative (Negative) Urine Glucose (UA) Negative (Negative) g/dL Urine Ketones Negative (NEGATIVE) Urine Occult Blood Trace-intact (Negative) Urine Nitrate Negative (Negative) Urine Bilirubin Negative (NEGATIVE) Urine Urobilinogen 0.2 (0.2) E.U./dL Ur Leukocyte Esterase Negative (NEGATIVE) Urine RBC 1-5/hpf (0-5/HPF) Urine WBC 0-1/hpf (0-5/HPF) Ur Squamous Epith Cells 1-5 /hpf (0-5/HPF) Urine Bacteria None seen (None) Ur Culture Indicated? Cult not indicated Vol Urine Centrifuged 10ml (spun) MDM Narrative Medical decision making narrative: 79-year-old female with dysuria and frequency of urination feels typical for previous urine infections. No fevers or chills. Afebrile, sirs screen negative. Urinalysis minimally abnormal, not convincing for infection, urine culture requested. Patient prefers to start treatment with the antibiotic, that has relieved her symptoms in the past but prior cefdinir course antibiotic noted, history of penicillin allergy, with tolerated well in the past. Cefdinir 1st of now, prescription for 7 day course sent to her pharmacy. Encouraged to drink plenty of fluids. Recheck in 2 days advised in clinic with the regular provider. Return precautions discussed. Home with family. Discharge Plan Departure Patient Disposition: Home Clinical Impression: Urinary tract infection Instructions: DI for Urinary Retention in Women Activity Restrictions/Additional Instructions: Frequency of urination, history of previous urinary tract infection, this feels similar. No fever on triage. No tenderness to CVA regions where the kidneys are sitting. No anterior abdominal discomfort on palpation. Screening urinalysis with minimal abnormalities, urine cultures requested. Trial of antibiotics, cephalexin 1st dose in the emergency department, trial of cephalexin antibiotic for 5 days sent to your pharmacy. Drink plenty of fluids. Take Tylenol as needed for discomfort. Recheck symptoms in the next couple of days. Consider repeat urinalysis at completion of course of antibiotic. Return earlier to this/nearest emergency department for any change worsening symptoms or any concerns prior. Prescriptions: New cefdinir 300 mg capsule 300 mg PO BID 7 Days Qty: 14 0RF No Action rosuvastatin 5 mg PO DAILY phenytoin sodium extended [Dilantin Extended] 100 mg capsule 100 mg PO TID Rx Instructions: 100mg in am and 200mg at bedtime aspirin 81 mg Tablet,Delayed Release (Dr/Ec) 81 mg PO DAILY Qty: 30 0RF carvedilol 3.125 mg Tablet 3.125 mg PO BID Qty: 60 0RF benzonatate 100 mg Capsule 100 mg PO TID PRN (Reason: Cough) Qty: 30 0RF cefdinir 300 mg capsule 300 mg PO BID Qty: 8 0RF Referrals: Shira Nelson MD [Primary Care Provider] - Stand Alone Forms: Patient Portal/API/Survey
[2024-10-14] MEDS: CEFDINIR 300 MG CAPSULE PO (04:32)
[2024-10-14 04:40] LABS: RBC Urine 1-5/HPF (0-5/HPF); Urine Volume 10mL (spun); WBC Urine 0-1/HPF (0-5/HPF)
[2024-10-14 04:41] LABS: Bacteria Urine None Seen; Culture Indicated Urine Cult Not Indicated; Squamous Epithelial Cell Urine 1-5 /HPF (0-5/HPF)
[2024-10-14 05:01] VITALS: BP 156/67; PULSE 66; RESP 16; O2SAT 96
[2024-10-14 06:19] LABS: Urine Chlamydia NOT DETECTED; Urine N gonorrhoeae NOT DETECTED
== END 2024-10-14 05:03 | disposition home or self-care (01) ==
PROVIDERS: Emergency Provider Emergency Medicine; PCP Internal Medicine
DX: N39.0 Urinary tract infection, site not specified (principal)
CPT/HCPCS: 81001; 87077; 87086; 87186; 87491; 87591; 99283

== ENCOUNTER 2025-01-30 09:53 | Emergency (ER) | payer OTHER, MEDICARE, SELFPAY ==
[2024-07-21 15:49] VITALS: BMI 25.4
[2025-01-30 10:03] VITALS: BP 176/84; PULSE 68; RESP 16; TEMP 36.4; O2SAT 96; BMI 26.6
[2025-01-30 10:23] LABS: Appearance Urine UA CLEAR; Bilirubin Urine UA NEGATIVE (NEGATIVE); Color Urine UA YELLOW; Glucose Urine UA NEGATIVE (Negative); Ketones Urine UA NEGATIVE (NEGATIVE); Leukocyte Esterase Urine UA NEGATIVE (NEGATIVE); Nitrite Urine UA NEGATIVE (Negative); Occult Blood Urine UA 1+ (Negative); Protein Urine UA NEGATIVE (Negative); Urobilinogen Urine UA 0.2 E.U./dL (0.2)
[2025-01-30 10:35] LABS: Urine Volume 10mL (spun); pH Urine UA 5.5 (4.5-8.0)
[2025-01-30 10:36] LABS: Bacteria Urine None Seen; Culture Indicated Urine Cult Not Indicated; RBC Urine 1-5/HPF (0-5/HPF); Squamous Epithelial Cell Urine None Seen (0-5/HPF); WBC Urine None Seen (0-5/HPF)
--- NOTE | 2025-01-30 12:02 | ED_ITS ---
<Statement entered by Aleks Bennett, DO - 01/30/25 18:54> Dr. Bennett cosign statement I was available for consultation during the patient's emergency department visit. This chart is signed by me for administrative purposes only. I do not have direct contact with the patient during this visit. They were seen independently by the APC. HPI - Female Genitourinary General Chief complaint: Urogenital-Female Stated complaint: possible Bladder Infection x 10 days Time Seen by Provider: 01/30/25 11:16 History of Present Illness HPI Narrative: Ms. Scott is a very pleasant 79-year-old female with a past medical history of NSTEMI, atrophic vaginitis, epilepsy, occasional UTI who presents to the emergency department with a for concern of UTI times 10 days. Patient describes a sensation of burning and irritation in the vagina, vulva, perennial area with some suprapubic pressure with urination. States her symptoms feel similar to when she had a UTI in the past. She is actually in the process of being evaluated by Urology and was supposed to have an appointment today however just yesterday she found out that this appointment was going to be in [place] and she does not want to travel that far so she did not go to the appointment and instead came to the ED. she denies fevers, chills, nausea, vomiting, diarrhea, constipation, vaginal discharge or bleeding. The patient does occasionally wear briefs for dribbling urine. She denies any redness, rashes or abnormal discharge in the perineum. She is hoping for a local urology referral. Related Data Home Medications ?Medication ?Instructions ?Recorded ?Confirmed phenytoin sodium extended 100 mg 100 mg PO TID 4 07/21/24 capsule (Dilantin Extended) rosuvastatin 5 mg PO DAILY 07/21/2407/21 Previous Rx's ?Medication ?Instructions ?Recorded aspirin 81 mg tablet,delayed 81 mg PO DAILY #30 tabs 1 09/22/23 release benzonatate 100 mg capsule 100 mg PO TID PRN Cough #30 caps 07/23/24 carvedilol 3.125 mg tablet 3.125 mg PO BID #60 tabs cefdinir 300 mg capsule 300 mg PO BID #8 caps Allergies Allergy/AdvReac Type Severity Reaction Status Date / Time codeine (CODEINE) Allergy Mild ITCHING Verified 01/30/25 10:04 Penicillins (PENICILLINS) Allergy Mild ITCHING Verified 01/30/25 10:04 cortisone Allergy Verified 01/30/25 10:04 Review of Systems Review of Systems ROS Unobtainable: All systems reviewed & are unremarkable except as noted in HPI and below Patient History Medical History Lower urinary tract symptoms (LUTS) History of UTI Postmenopausal atrophic vaginitis Seizure disorder Neurological disease Surgical History History of abdominal hysterectomy History of breast biopsy History of bladder suspension procedure History of bladder surgery Family History Mother Cancer Sister Cancer Inflammatory bowel disease Exam Narrative Exam Narrative: GENERAL: 79 year old patient appears stated age. Well-developed patient, in no acute distress. HEAD: Atraumatic. Normocephalic. NECK: Trachea midline. Cervical ROM intact. CARDIOVASCULAR: Regular rate and rhythm. RESPIRATORY: ?Nonlabored respirations. ?Speaking in clear, full sentences. ?Clear to auscultation. Breath sounds equal bilaterally. No wheezes, rales, or rhonchi. ? GASTROINTESTINAL: Abdomen soft, non-tender, nondistended. BS present. No erythema of suprapubic region. Patient is wearing a brief. Patient declines vaginal and rectal exam. NEURO: AOx3. ?Clear speech. ?Moves all 4 extremities appropriately. SKIN: No rash or erythema of visible areas Initial Vital Signs Initial Vital Signs: Vital Signs Temperature 97.6 F 01/30/25 10:03 Pulse Rate 68 01/30/25 10:03 Respiratory Rate 16 01/30/25 10:03 Blood Pressure 176/84 H 01/30/25 10:03 Pulse Oximetry 96 01/30/25 10:03 Oxygen Delivery Method Room Air 01/30/25 10:03 Course Orders Ordered: ED Orders 01/30/25 10:09 Urinalysis and Microscopic Stat 01/30/25 11:44 Urine Culture Stat Vital Signs Vital signs: Vital Signs - 8 hr 01/30/25 10:03 Temperature 97.6 F Pulse Rate 68 Respiratory Rate 16 Blood Pressure 176/84 H Pulse Oximetry 96 Oxygen Delivery Method Room Air MDM - Female Genitourinary Medical Records Attestation: I reviewed the patient's medical records. Lab Data Labs: Lab Results 01/30/25 Range/Units 10:09 Urine Color Yellow Urine Appearance Clear Urine pH 5.5 (4.5-8.0) Ur Specific [place] 1.020 (1.000-1.035) Urine Protein Negative (Negative) Urine Glucose (UA) Negative (Negative) g/dL Urine Ketones Negative (NEGATIVE) Urine Occult Blood 1+ H (Negative) Urine Nitrate Negative (Negative) Urine Bilirubin Negative (NEGATIVE) Urine Urobilinogen 0.2 (0.2) E.U./dL Ur Leukocyte Esterase Negative (NEGATIVE) Urine RBC 1-5/hpf (0-5/HPF) Urine WBC None seen (0-5/HPF) Ur Squamous Epith Cells None seen (0-5/HPF) Urine Bacteria None seen (None) Ur Culture Indicated? Cult not indicated Vol Urine Centrifuged 10ml (spun) [facility] Narrative Medical decision making narrative: 79-year-old female with a past medical history of NSTEMI, atrophic vaginitis, epilepsy, occasional UTI who presents to the emergency department with a for concern of UTI times 10 days. Differential diagnosis includes but is not limited to cystitis, UTI, vulvovaginal candidiasis, atrophic vaginitis, interstitial cystitis, malignancy, Bladder prolapse, etc. On exam patient is in no acute distress, nontoxic appearing vital signs appropriate except for mildly elevated blood pressure. She is describing perineal itching and irritation and suprapubic pressure with urination, concern for UTI, denies any vaginal discharge or redness in declines rectal or vaginal exam. She is experienced similar symptoms in the past related to UTI, urinalysis was obtained and reveals 1+ urine occult blood, 1-5 urine RBC, no signs of infection. Urine was cultured. She discussed various possibilities with the patient but recommended follow up with Urology or Urogynecology for further evaluation. We did discuss CT abdomen and pelvis with IV contrast however patient's abdomen is soft and nontender, benign exam, she would prefer to avoid this at this time and instead follow up with a specialist which I am agreeable to. Recommended supportive care pending urine culture results, specialist follow up, PCP follow up, strict ED return precautions. Patient verbalized understanding of all information and is agreeable to the plan. She is stable for discharge home. Discharge Plan Departure Patient Disposition: Home Clinical Impression: Perineal discomfort in female Instructions: DI for Dysuria -- Adult Activity Restrictions/Additional Instructions: Dear Ms. Scott, Thank you for coming to the emergency department. Today you were evaluated for concern of bladder infection. Your urinalysis revealed a trace amount of blood/red blood cells but no infection. It is very important for you to follow up with Urogynecologist Dr. Sarbjit Chang or Urologist Dr. Berman for further evaluation and testing for the underlying cause of your discomfort. While wearing briefs, you may use a skin barrier protection such as Desitin to prevent skin breakdown and you may also use [id number] AZO to help with urinary discomfort. Please return to the emergency department immediately if you develop fevers, chills, severe pain, nausea, vomiting, blood in the urine or any other concerning symptoms. Please follow up with your primary care doctor within the next 2-3 days for ER follow-up. (If you do not have a PCP you can call [phone]. ?to schedule an appointment with an [facility] Primary Care Provider) IF YOU DEVELOP ANY NEW OR WORSENING SYMPTOMS, RETURN TO THE ER! Please read the attached instructions, they highlight more specific treatments and interventions for you at home. Thank you for letting me participate in your care, Teresa Hyatt PA-C Prescriptions: No Action rosuvastatin 5 mg PO DAILY phenytoin sodium extended [Dilantin Extended] 100 mg capsule 100 mg PO TID Rx Instructions: 100mg in am and 200mg at bedtime aspirin 81 mg Tablet,Delayed Release (Dr/Ec) 81 mg PO DAILY Qty: 30 0RF carvedilol 3.125 mg Tablet 3.125 mg PO BID Qty: 60 0RF benzonatate 100 mg Capsule 100 mg PO TID PRN (Reason: Cough) Qty: 30 0RF cefdinir 300 mg capsule 300 mg PO BID Qty: 8 0RF Referrals: Melvin Berman DO [Physician, Urology] Referral Note: 79 yo F struggling with chronic UTI sx with negative UA Sarbjit Chang MD [Physician, Urogynecology] Referral Note: 79 yo F struggling with intermittent dysuria, vaginal disc Shira Jeffries MD [Primary Care Provider, Internal Medicine] Stand Alone Forms: Patient Portal/API
[2025-01-30 13:15] VITALS: BP 178/81; PULSE 70; RESP 18; TEMP 36.6; O2SAT 97
== END 2025-01-30 13:16 | disposition home or self-care (01) ==
PROVIDERS: Family Medicine; Emergency Provider Physician Assistant; PCP Internal Medicine
DX: R10.2 Pelvic and perineal pain (principal)
CPT/HCPCS: 81001; 87086; 99281; 99282